=== PATIENT | male | born 1990 | race Two or more races ===

== ENCOUNTER → 2020-05-30 08:25 | Outpatient (BNVA) | payer OTHER, SELFPAY | PROVIDERS: PCP Internal Medicine; Referring Provider Internal Medicine; Visit Provider Internal Medicine Gastroenterology | DX: Z76.89 Persons encountering health services in other specified circumstances (principal) ==

== ENCOUNTER 2020-10-16 09:20 | Outpatient (REF) | payer OTHER, SELFPAY ==
[2020-10-16 10:15] LABS: MANUAL DIFF FLAG NO
[2020-10-16 10:22] LABS: Basophils Percent Auto 0.6 % (0-2); Eosinophils Absolute Auto 0.1 X10*3/uL (0.0-0.4); Eosinophils Percent Auto 2.5 % (0-4); Hematocrit 44.5 % (42-52); Hemoglobin 14.7 g/dl (14.0-18.0); Imm Gran Abs Auto 0.01 X10*3/uL (0.00-0.03); Imm Gran Pct Auto 0.2 % (0.0-0.4); Lymphocytes Absolute Auto 1.8 X10*3/uL (1.2-4.9); Lymphocytes Percent Auto 37.2 % (20-40); Mean Corpuscular Hemoglobin 30.5 pg (27.0-33.0); Mean Corpuscular Volume 92.3 fL (80-98); Mean Platelet Volume 12.3 fL (9.4-12.4); Monocytes Absolute Auto 0.5 X10*3/uL (0.1-1.2); Monocytes Percent Auto 9.4 % (2-11); Neutrophils Absolute Auto 2.4 X10*3/uL (2.0-8.3); Neutrophils Percent Auto 50.1 % (45-73); Platelet Count 133 X10*3/uL (160-400); Red Blood Count 4.82 X10*6/uL (4.60-5.80); Red Cell Distribution Width 13.5 % (11.0-16.0); White Blood Count 4.9 X10*3/uL (4.8-10.8)
[2020-10-16 10:48] LABS: Alanine Aminotransferase 18 U/L (0-40); Albumin Level 4.7 g/dL (3.5-5.0); Alkaline Phosphatase 91 U/L (39-117); Aspartate Amino Transferase 23 U/L (5-37); Bilirubin Direct 0.3 mg/dL (0.0-0.5); Bilirubin Total 0.6 mg/dL (0.0-1.0); C Reactive Protein 0.11 mg/dL (< or = 0.50); Total Protein 6.8 g/dL (6.5-8.0)
[2020-10-16 11:19] LABS: Erythrocyte Sedimentation Rate 2 MM/HR (0-15)
[2020-10-17 13:06] LABS: Transglutaminase Ab IgG 1 U/mL; Transglutaminase IgA 1 U/mL
[2020-10-17 13:52] LABS: Immunoglobulin A 107 mg/dL (47-310)
== END 2020-10-16 09:21 | disposition home or self-care (01) ==
LOC: HO.LAB 09:20
PROVIDERS: PCP Internal Medicine; Visit Provider Internal Medicine Gastroenterology
DX: D69.6 Thrombocytopenia, unspecified (principal); R19.4 Change in bowel habit; R93.2 Abnormal findings on diagnostic imaging of liver and biliary tract
CPT/HCPCS: 36415; 80076; 82784; 83516; 85025; 85652; 86140

== ENCOUNTER → 2020-10-17 10:51 | Outpatient (BNVA) | payer OTHER, SELFPAY | PROVIDERS: Visit Provider Internal Medicine Gastroenterology | DX: R10.30 Lower abdominal pain, unspecified (principal); R93.2 Abnormal findings on diagnostic imaging of liver and biliary tract; K21.9 Gastro-esophageal reflux disease without esophagitis | CPT/HCPCS: 99212 ==

== ENCOUNTER 2021-01-08 07:48 | Outpatient (REF) | payer OTHER, SELFPAY ==
--- NOTE | ~2021-01-08 | US_ITS ---
EXAMINATION: US ABDOMEN COMPLETE CLINICAL INFORMATION: Abnormal findings on diagnostic imaging of liver. COMPARISON: Ultrasound abdomen complete dated 01/30/2019. TECHNIQUE: Real-time imaging of the abdominal viscera. FINDINGS: PANCREAS: Normal. ABDOMINAL AORTA: The proximal, mid, and distal segments are normal in caliber. INFERIOR VENA CAVA: Visualized portions are normal. LIVER: Normal. The liver is normal in size. The liver contour is normal. Parenchymal echogenicity is normal. No focal hepatic lesion. There is no intrahepatic biliary duct dilatation seen. GALLBLADDER: Normal. The gallbladder is physiologically distended without evidence of stones, sludge, polyps, wall thickening or pericholecystic fluid. COMMON BILE DUCT: Normal in caliber measuring 0.1 cm in diameter. RIGHT KIDNEY: Normal. No hydronephrosis. No renal calculi or focal parenchymal lesions. The kidney measures 10.0 cm in maximum dimension. LEFT KIDNEY: Normal. No hydronephrosis. No renal calculi or focal parenchymal lesions. The kidney measures 10.6 cm in maximum dimension. SPLEEN: Normal. The spleen measures 9.4 cm in maximum dimension. FREE FLUID: None. US/US abdomen complete IMPRESSION: Unremarkable exam.
== END 2021-01-08 07:49 | disposition home or self-care (01) ==
LOC: HO.US 07:48
PROVIDERS: PCP Internal Medicine; Visit Provider Internal Medicine Gastroenterology
DX: R93.2 Abnormal findings on diagnostic imaging of liver and biliary tract (principal)
CPT/HCPCS: 76700

== ENCOUNTER 2022-05-20 11:24 | Outpatient (REF) | payer OTHER, SELFPAY ==
[2022-05-20 11:58] LABS: MANUAL DIFF FLAG NO
[2022-05-20 12:36] LABS: Basophils Percent Auto 0.6 % (0-2); Eosinophils Absolute Auto 0.1 X10*3/uL (0.0-0.4); Eosinophils Percent Auto 1.8 % (0-4); Hematocrit 44.6 % (42.0-52.0); Hemoglobin 14.9 g/dl (14.0-18.0); Imm Gran Abs Auto 0.01 X10*3/uL (0.00-0.03); Imm Gran Pct Auto 0.2 % (0.0-0.4); Lymphocytes Absolute Auto 2.2 X10*3/uL (1.2-4.9); Lymphocytes Percent Auto 43.1 % (20-40); Mean Corpuscular HGB Conc 33.4 g/dl (31.0-36.0); Mean Corpuscular Hemoglobin 30.8 pg (27.0-33.0); Mean Corpuscular Volume 92.3 fL (80.0-98.0); Mean Platelet Volume 12.5 fL (9.4-12.4); Monocytes Absolute Auto 0.5 X10*3/uL (0.1-1.2); Monocytes Percent Auto 9.2 % (2-11); Neutrophils Absolute Auto 2.3 x10*3/uL (2.0-8.3); Neutrophils Percent Auto 45.1 % (45-73); Platelet Count 151 X10*3/uL (160-400); Red Blood Count 4.83 X10*6/uL (4.60-5.80); Red Cell Distribution Width 13.1 % (11.0-16.0)
[2022-05-20 13:30] LABS: Alanine Aminotransferase 15 U/L (0-40); Albumin Level 4.8 g/dL (3.5-5.0); Alkaline Phosphatase 95 U/L (39-117); Anion Gap 13 (12-20); Aspartate Amino Transferase 22 U/L (5-37); Bilirubin Total 0.7 mg/dL (0.0-1.0); Blood Urea Nitrogen 18 mg/dL (9-16); Calcium 10.3 mg/dL (8.4-10.2); Carbon Dioxide 30 mmol/L (22-29); Chloride 100 mmol/L (96-108); Cholesterol 161 mg/dL; Estimated Glomerular Filt Rate > 60; Free T4 (Free Thyroxine) 0.94 ng/dL (0.71-1.85); Glucose Random 85 mg/dL (60-115); HDL Cholesterol 50 mg/dL; LDL Cholesterol Calculated 100 mg/dl; Potassium 4.6 mmol/L (3.3-5.1); Sodium 138 mmol/L (135-145); Thyroid Stimulating Hormone 0.69 uIU/mL (0.32-4.0); Total Protein 7.1 g/dL (6.5-8.0); Triglycerides 57 mg/dL
[2022-05-20 13:54] LABS: Folate 14.2 ng/mL (> or = 4.0); Vitamin B12 321 pg/mL (200-900)
== END 2022-05-20 11:25 | disposition home or self-care (01) ==
LOC: HO.LAB 11:24
PROVIDERS: PCP Internal Medicine; Visit Provider Internal Medicine
DX: D72.819 Decreased white blood cell count, unspecified (principal); E78.00 Pure hypercholesterolemia, unspecified
CPT/HCPCS: 36415; 80053; 80061; 82607; 82746; 84439; 84443; 85025

== ENCOUNTER 2023-07-22 14:45 | Outpatient (AMB) | payer OTHER, SELFPAY ==
--- NOTE | 2023-07-22 14:48 | A.OFFPC_ITS ---
Vital Signs 07/22/23 14:50 Height 5 ft 9 in Weight 161 lb 6 oz BMI 23.8 BP 110/62 Blood Pressure Location Lt brachial Position Sitting Pulse 72 Pulse Source Pulse Oximeter Pulse Oximetry (%) 99 Oxygen Delivery Method Room Air Intake Visit Reasons: abdominal pain. Intake Note: Patient is here today for abdominal tinging radiates down testicular area with some pressure no urgency to urinate on going from 07/19/23. Complaint of right side pain. Production Manager Required: No Online Community Manager: Not Required per policy Accompanied by: Self / Same As Patient Allergies No Known Allergies Allergy (Verified 07/23/23 10:16) Medication List - Last Reconciled 07/23/23 by Maulik Rossi MD sulfamethoxazole-trimethoprim 800-160 mg (Bactrim DS) 1 tab PO BID 7 days Tobacco use date assessed: 07/22/23 Dental Screening Dental Screen Date: 07/22/23 Did you have a dental visit in the last 12 months?: Yes Did you have a dental problem in the last 6 months where you did not have access to dental care?: No Was dental information given to patient?: Patient has dentist HPI abdominal pain. HPI Details 32 yr old male presents to the office fo r a sick visit. He is complaining of non specific discomfirt on the right side of the abdomen. He has had these symptoms in the past, US, GI work up and seeing the GI did not reveal anything. Intermittent discomfirt, no specific aggravating or relieving factors. No nausea or vomiting. In addition, patient reports some burning on urination for the past few days. Tingling sensation around the testicle. No discharge. Heterosexual with single partner. [facility] Medical History Lower abdominal pain Leukopenia Thrombocytopenia Abnormal ultrasound of liver Surgical History H/O left wrist surgery Family History Father Hx of type 1 diabetes mellitus Mother Hx of heart failure Brain aneurysm Paternal Grandfather Colon cancer Maternal Aunt Brain aneurysm Stomach cancer Social History Housing: Apartment Alcohol intake: current Alcohol intake frequency: holidays/special occasions only Patient Tobacco Use Status: Never used Tobacco e-Cigarette/Vaping Use: Never Used Second Hand Smoke Exposure: No Substance Use Type: Marijuana service: No Current occupational status: employed Cognitive needs: No Hearing needs: No Vision needs: Yes Questionnaire PHQ-9 Over the last 2 weeks, how often have you been bothered by any of the following problems? 1. Little interest or pleasure in doing things: not at all 2. Feeling down, depressed, or hopeless: not at all 3. Trouble falling or staying asleep, or sleeping too much: not at all 4. Feeling tired or having little energy: not at all 5. Poor appetite or overeating: not at all 6. Feeling bad about yourself - or that you are a failure or have let yourself or your family down: not at all 7. Trouble concentrating on things, such as reading the newspaper or watching television: not at all 8. Moving or speaking so slowly that other people could have noticed. Or the opposite - being so fidgety or restless that you have been moving around a lot more than usual: not at all 9. Thoughts that you would be better off or of hurting yourself in some way: not at all Total score: 0 Depression Screening Interpretation: Negative Depression Screening Done: Yes Source: Developed by Drs. Inderjit Bailey, Urszula Portillo, J Carlos Chiu and colleagues, with an educational ursula from [employer]. Thrive Questionnaire Date Thrive assessed: 07/22/23 I am a: Patient What is your living situation today?: I have a steady place to live Within the past 12 months, did the food you bought not last and you didn't have the money to get more?: Never true Within the past 12 months, did you worry whether your food would run out before you got money to buy more?: Never true Do you have trouble paying for medicines?: No Do you have trouble getting transportation to medical appointments?: No Do you have trouble paying your heating and electricity bill?: No Do you have trouble taking care of your child, family member or friend?: No Do you have trouble with day-to-day activities such as bathing, preparing meals, shopping, managing finances, etc.?: No Are you currently unemployed and looking for a job?: No Are you interested in more education?: No Currently or been in a relationship where the following occur: no concerns reported THRIVE Score: 0 AUDIT C Alcohol Use Questionnaire (AUDIT-C) 1. How often do you have a drink containing alcohol?: 2-4 times a month 2. How many drinks containing alcohol do you have on a typical day when you are drinking?: 1 or 2 Total Score: 2 SHIVA-7 AMB Questionnaire SHIVA-7 Date SHIVA - 7 assessed: 07/22/23 Feeling nervous, anxious, or on edge: 0 = Not at all Not being able to stop or control worryin = Not at all Worrying too much about different things: 0 = Not at all Trouble relaxin = Not at all Being so restless that it is hard to sit still: 0 = Not at all Becoming easily annoyed or irritable: 0 = Not at all Feeling afraid as if something awful might happen: 0 = Not at all Total SHIVA-7 score (0-4 normal; 5-9 mild; 10-14 moderate; 15-21 severe): 0 Source: Developed by Drs. Inderjit Bailey, Urszula Portillo, J Carlos Chiu and colleagues, with an educational ursula from [employer]. Physical exam (Primary Care) Vital Signs: Last Vital Signs Pulse 72 07/22/23 14:50 BP 110/62 07/22/23 14:50 Pulse Ox 99 07/22/23 14:50 Oxygen Delivery Method Room Air 07/22/23 14:50 BMI result Body Mass Index 23.8 Tobacco/Smoking Status: Tobacco use Status Tobacco use date assessed 07/22/23 07/22/23 14:55 Patient Tobacco Use Status Never used Tobacco 07/22/23 14:55 e-Cigarette/Vaping Use Never Used 07/22/23 14:55 PHQ-9: PHQ-9 Score PHQ-9: Total score 0 07/22/23 15:31 Depression Screening Interpretation: Negative Thrive Assessment: Date of Thrive Assessment Date Thrive assessed 07/22/23 07/22/23 14:55 Currently or been in a relationship where the following occur: no concerns reported Const General: cooperative and healthy appearing Nutritional Appearance: well nourished Orientation/consciousness: patient oriented x3 Limitations: no limitations HENMT Head: Yes normal to inspection Eyes General: appearance normal, both eyes and all related structures Neck Neck: Yes normal visual inspection Chest Chest palpation & inspection: normal palpation of entire chest wall Resp Effort & Inspection: normal respiratory effort Neuro General: patient oriented x3 Results AMB Urinalysis, Automated UA Leukoctes 1 Nina/uL Last Edit by Diogo Torres Fela on 07/22/23 15:32 UA Nitrite Negative Last Edit by Diogo Torres [facility] on 07/22/23 15:32 UA Urobilinogen 0 mg/dL Last Edit by Diogo Torres [facility] on 07/22/23 15:32 UA Protein 1 mg/dL Last Edit by Diogo Torres [facility] on 07/22/23 15:32 UA pH 6.0 Last Edit by Diogo Torres [facility] on 07/22/23 15:32 UA Blood 0 Yordy/uL Last Edit by Diogo Torres [facility] on 07/22/23 15:32 UA Specific [place] 1.030 Last Edit by Diogo Torres [facility] on 07/22/23 15: 32 UA Ketone Positive Last Edit by Diogo Torres [facility] on 07/22/23 15:32 UA Bilirubin 0 mg/dL Last Edit by Diogo Torres [facility] on 07/22/23 15:32 UA Glucose 1 mg/dL Last Edit by Diogo Torres [facility] on 07/22/23 15:32 Results Reviewed Results Reviewed: Laboratory Last Values Urine pH (Auto) 6.0 07/22/23 15:27 Specific [place] (Auto) 1.030 07/22/23 15:27 Urine Protein (Auto) 1 mg/dL L* 07/22/23 15:27 Glucose (UA)(Auto) 1 mg/dL 07/22/23 15: Urine Ketones (Auto) Positive 07/22/23 15:27 Urine Blood (Auto) 0 Yordy/uL 07/22/23 15:27 Urine Nitrite (Auto) Negative 07/22/23 15: Urine Bilirubin (Auto) 0 mg/dL 07/22/23 15:27 Urine Urobilinogen (Auto) 0 mg/dL 07/22/23 15:27 Leukocyte Esterase (Auto) 1 Nina/uL 07/22/23 15:27 Assessment and Plan Assessment & Plan (1) Abdominal pain: Code(s): R10.9 - Unspecified abdominal pain Plan: Urinalysis positive for glucose and leucocytes. Empiric treatment with antibiotics. BW has been ordered. Will call with results. Orders: Orders Hemoglobin A1c 07/22/23 R10.9 - Unspecified abdominal pain Liver Panel 07/22/23 R10.9 - Unspecified abdominal pain AMB Urinalysis Automated 07/22/23 Z13.9 - Encounter for screening, unspecified Basic Metabolic Panel 07/22/23 R10.9 - Unspecified abdominal pain Complete Blood Count no Diff 07/22/23 R10.9 - Unspecified abdominal pain UA and rflx microscopic 07/22/23 R10.9 - Unspecified abdominal pain Medications: New sulfamethoxazole-trimethoprim 800-160 mg (Bactrim DS) 1 tab PO BID 7 days 14 tabs 0RF Coding Level of Care Code Est Pt Level 4 (57536) Diagnoses Abdominal pain R10.9
[2023-07-22 14:50] VITALS: BP 110/62; PULSE 72; O2SAT 99; BMI 23.8
== END 2023-07-22 15:43 | disposition home or self-care (01) ==
PROVIDERS: PCP Internal Medicine; Visit Provider Internal Medicine
DX: R10.9 Unspecified abdominal pain (principal); R30.9 Painful micturition, unspecified
CPT/HCPCS: 81003; 99214

== ENCOUNTER 2023-07-22 15:58 | Outpatient (REF) | payer OTHER, SELFPAY ==
[2023-07-22 16:34] LABS: Hematocrit 44.8 % (42.0-52.0); Mean Corpuscular HGB Conc 33.5 g/dl (31.0-36.0); Mean Corpuscular Hemoglobin 29.9 pg (27.0-33.0); Mean Corpuscular Volume 89.4 fL (80.0-98.0); Mean Platelet Volume 11.4 fL (9.4-12.4); Platelet Count 151 X10*3/uL (160-400); Red Blood Count 5.01 X10*6/uL (4.60-5.80); Red Cell Distribution Width 13.1 % (11.0-16.0)
[2023-07-22 16:56] LABS: Estimated Average Glucose 105 mg/dL; Hemoglobin A1c % 5.3 % (<6.0)
[2023-07-22 17:03] LABS: Appearance Urine Clear; Color Urine Dark Yellow; Glucose Urine UA Negative (Negative); Leukocyte Esterase Urine Trace (Negative); Nitrite Urine Negative (Negative); PH 5.5 (5.0-9.0); Specific Gravity - Urine >= 1.030 (1.005-1.025); UMIC TRIGGER UA YES; Urine Blood Negative (Negative); Urine Ketones Trace mg/dL (Negative); Urine Protein Negative (Neg-Trace)
[2023-07-22 17:07] LABS: Alanine Aminotransferase 11 U/L (0-40); Albumin Level 4.7 g/dL (3.5-5.0); Alkaline Phosphatase 91 U/L (39-117); Anion Gap 11 (12-20); Aspartate Amino Transferase 17 U/L (5-37); Bilirubin Direct 0.2 mg/dL (0.0-0.5); Bilirubin Total 0.5 mg/dL (0.0-1.0); Blood Urea Nitrogen 17 mg/dL (9-16); Calcium 9.9 mg/dL (8.4-10.2); Carbon Dioxide 31 mmol/L (22-29); Chloride 103 mmol/L (96-108); Estimated Glomerular Filt Rate > 60; Glucose Random 102 mg/dL (60-115); Potassium 3.9 mmol/L (3.3-5.1); Sodium 141 mmol/L (135-145); Total Protein 7.2 g/dL (6.5-8.0)
[2023-07-22 17:11] LABS: Bacteria Urine None Seen (None Seen); Hyaline Casts Urine 0-2 /LPF (0-2); RBC Urine 0-2 /HPF (0-2); Squamous Epithelial Cell Urine 0-2 /HPF (0-2); WBC Urine 0-5 /HPF (0-5)
== END 2023-07-22 15:59 | disposition home or self-care (01) ==
LOC: HO.LAB 15:58
PROVIDERS: PCP Internal Medicine; Visit Provider Internal Medicine
DX: R10.9 Unspecified abdominal pain (principal)
CPT/HCPCS: 36415; 80048; 80076; 81001; 81003; 83036; 85027

== ENCOUNTER 2023-08-17 12:47 | Emergency (ER) | payer OTHER, SELFPAY ==
--- NOTE | ~2023-08-17 | CT_ITS ---
EXAMINATION: CT ABDOMEN AND PELVIS WITHOUT CONTRAST CLINICAL INFORMATION: Suprapubic pain. Dysuria. COMPARISON: Previous abdominal ultrasound most recent December 2020 TECHNIQUE: Multidetector volumetric imaging was performed from the superior aspect of the liver through the pubic symphysis. Sagittal and coronal reformatted images were obtained on the technologist's workstation. This CT examination was performed using dose optimization techniques as appropriate, variously including the following: *Automated exposure control *Adjustment of mA and/or kV according to patient size (this includes techniques or standardized protocols for targeted exams where dose is matched to indication/reason for exam; i.e. extremities or head) *Use of iterative reconstruction technique DLP: 345 mGy-cm FINDINGS: LUNG BASES: The visualized lung bases are unremarkable. LIVER, GALLBLADDER, AND BILIARY TREE: The liver is normal in size, shape, and attenuation. No focal hepatic lesion or biliary ductal dilatation is present. The gallbladder is unremarkable with no evidence of radiopaque gallstones, gallbladder wall thickening, or obvious pericholecystic inflammatory changes. PANCREAS: Unremarkable. SPLEEN: Unremarkable. ADRENAL GLANDS: Unremarkable. KIDNEYS AND URETERS: The kidneys are normal in size, shape, and attenuation. No hydronephrosis, hydroureter, or calculi seen. No perinephric stranding. BLADDER: Unremarkable. GASTROINTESTINAL TRACT: The small and large bowel are unremarkable. The appendix is unremarkable. ABDOMINAL WALL: No significant hernia is appreciated. LYMPH NODES: Normal. VASCULAR: Unremarkable. PELVIC VISCERA: Unremarkable. OSSEOUS STRUCTURES: Unremarkable. CT/CT abdomen pelvis wo IV con IMPRESSION: Unremarkable exam. Fleischner guidelines were followed.
[2023-08-17 12:50] VITALS: BP 143/78; PULSE 65; RESP 18; TEMP 37; O2SAT 97; BMI 22.4
--- NOTE | 2023-08-17 12:56 | ED_ITS ---
HPI - General Adult General Chief complaint: Urogenital-Male Stated complaint: Pain/tingling in groin area Time Seen by Provider: 08/17/23 14:35 Source: patient and RN notes reviewed Mode of arrival: ambulatory Limitations: no limitations History of Present Illness HPI narrative: This is a 32-year-old male, with no known medical problems, presenting to the emergency department for evaluation of slight dysuria, and suprapubic pain x 3 days. Patient states that over the last several days he has had suprapubic pain, as well as some mild dysuria with urination. He states that he was seen at his primary care physician's office 3 weeks ago with similar symptoms and was treated with a course of Bactrim which he completed and his symptoms resolved up until several days ago. He also endorses some tingling sensation into his testicles, denies any pain, no testicular swelling, pain, overlying rashes, masses, or lesions. He is sexually active with 1 partner. No concerns for any sexually transmitted infections. Denies any fevers, chills, chest pain, shortness of breath, abdominal pain, nausea, vomiting or diarrhea. He denies nocturia. He does report sometimes he has to strain to produce a strong urine stream. No other complaints or concerns at this time. complaint: Dysuria, suprapubic pain Onset (ago): day(s) Quality: burning Relieving factors: none Exacerbating factors: none Associated symptoms: denies other symptoms Treatments prior to arrival: none Related Data Previous Rx's Medication Instructions Recorded sulfamethoxazole 800 1 tab PO BID 7 days #14 tabs 07/22/23 mg-trimethoprim 160 mg tablet (Bactrim DS) doxycycline hyclate 100 mg tablet 100 mg PO BID 7 days #14 tabs 08/17/23 Allergies Allergy/AdvReac Type Severity Reaction Status Date / Time No Known Allergies Allergy Verified 08/17/23 12:58 Review of Systems Review of Systems: Yes all other systems are reviewed and are negative Constitutional: Constitutional: Reports as per [facility] Past Medical History Medical History Lower abdominal pain Leukopenia Thrombocytopenia Abnormal ultrasound of liver Surgical History H/O left wrist surgery Family History Family History Father Hx of type 1 diabetes mellitus Mother Hx of heart failure Brain aneurysm Paternal Grandfather Colon cancer Maternal Aunt Brain aneurysm Stomach cancer Social History Social History Housing: Apartment Alcohol intake: current Alcohol intake frequency: holidays/special occasions only Patient Tobacco Use Status: Never used Tobacco e-Cigarette/Vaping Use: Never Used Second Hand Smoke Exposure: No Substance Use Type: Marijuana Advance Directives: No service: No Current occupational status: employed Cognitive needs: No Hearing needs: No Vision needs: Yes Physical Exam ED Vital Signs: Vital Signs - 24 hr 08/17/23 12:50 08/17/23 14:53 Temperature 98.6 F Pulse Rate 65 53 Respiratory Rate 18 16 Blood Pressure 143/78 H 122/76 Pulse Oximetry 97 99 Oxygen Delivery Method Room Air Room Air BMI result Body Mass Index 22.4 Const General: cooperative, comfortable and no acute distress Orientation/consciousness: patient oriented x3 Limitations: no limitations HENMT Head: Yes normal to inspection, Yes normocephalic and Yes atraumatic Ears: hearing grossly normal bilaterally General nose exam: Normal external nose present Face and sinus: Yes normal facial exam Mouth: Normal oral and palatal mucosa present, oropharynx normal and moist mucous membranes Throat: Yes posterior oropharynx normal Eyes General: appearance normal, both eyes and all related structures Eyelids: Yes eyelids normal Conjunctivae: conjunctivae normal Sclerae: sclerae normal Pupils: Equal, round and reactive pupils present EOM: EOMs intact bilaterally Neck Neck: Yes normal visual inspection, Yes full ROM and Yes no lymphadenopathy Lymphatic: no lymphadenopathy noted Chest Chest palpation & inspection: normal inspection of the chest Resp Effort & Inspection: normal respiratory effort and able to speak in complete sentences Auscultation: clear to auscultation bilaterally, no crackles, no rales, no rhonchi and no wheezes Cardio Rate: regular rate Rhythm: regular rhythm Heart sounds: S1 normal heart sound present and S2 normal heart sound present GI Other: Mild suprapubic tenderness, no rebound or guarding. Inspection: Yes normal to inspection Skin General skin exam: no rashes or lesions noted Trauma: no lacerations or abrasions Wounds: no wounds Neuro General: patient oriented x3 and moves all extremities Cranial nerves: Yes Equal, round and reactive pupils present Extrem General: Yes normal to inspection Right upper extremity: normal to inspection Left upper extremity: normal to inspection Right lower extremity: normal to inspection Left lower extremity: normal to inspection Course Course Course Narrative: This is a rapid medical exam: Additional HPI, ROS, PE not included below will be deferred to primary provider. Patient is a 32-year-old male presenting to the ED with a few days of suprapubic abdominal pain as well as low back pain. States he is only sexually active with his fiance and sometimes uses condoms. Reports some cloudy penile discharge and when he had similar symptoms in the past, he had an STI. Plan: UA, CT NG Reevaluation(s) Reevaluation #1: Urine returns, revealing trace leuk esterases, will obtain CT abdomen to rule out kidney stone. Reevaluation #2: CT unremarkable. Discussed case with my attending physician, Dr. France, who recommends treating for urethritis. Given he tested negative for gonorrhea chlamydia, this may be another infection source and will treat with 7 day course of doxycycline. Also given referral to Urology. Discussed this with patient, who understands and agrees with this treatment plan. Given return precautions. Patient stable for discharge Medications Administered Discontinued Medications Generic Name Dose Route Start Last Admin Trade Name Freq PRN Reason Stop Dose Admin Ibuprofen 600 mg 08/17/23 17:10 08/17/23 17:57 Ibuprofen 600 Mg Tablet PO 08/17/23 17:11 600 mg ONCE ONE Administration Medical Decision Making Medical Decision Making [facility] Narrative: This is a 32-year-old male, with no known medical problems, presenting to the emergency department complaints of suprapubic pain and dysuria x3 days. On arrival, vital signs within normal limits. He had similar symptoms several weeks ago and was told he had a urinary tract infection. He was treated with a course of antibiotics which he completed however his symptoms returned 3 days ago. On examination, mild suprapubic tenderness. Given some tingling into his testes, will obtain CTA to rule out any obstructive uropathy like symptoms. Urinalysis will also be obtained as well as GC chlamydia. Differential Diagnosis Differential Diagnoses: The differential diagnosis associated with the presentation includes Urethritis, cystitis, nephrolithiasis, obstructive uropathy Lab Data MDM Lab Attestation statement: I reviewed the patient's lab results. Trace leuk esterases, negative gonorrhea and chlamydia Labs: Lab Results 08/17/23 08/17/23 Range/Units 13:32 15:46 Urine Color Yellow Urine Appearance Clear Urine pH 7.5 (5.0-9.0) Ur Specific [place] 1.020 (1.005-1.025) Urine Protein Negative (Neg-Trace) mg/dL Urine Glucose (UA) Negative (Negative) mg/dL Urine Ketones Negative (Negative) mg/dL Urine Blood Negative (Negative) Urine Nitrite Negative (Negative) Ur Leukocyte Esterase Trace H (Negative) Urine RBC 0-2 (0-2) /HPF Urine WBC 0-5 (0-5) /HPF Ur Squamous Epith Cells 0-2 (0-2) /HPF Urine Bacteria None Seen (None Seen) Hyaline Casts 0-2 (0-2) /LPF Chlam trachomat DNA PCR NOT DETECTED (Not Detect.) N.gonorrhoeae DNA (PCR) NOT DETECTED (Not Detect.) Radiology Impression Discussion of test interpretation with radiology: I have reviewed the radiologist's reading. Radiologist Impression: EXAMINATION: CT ABDOMEN AND PELVIS WITHOUT CONTRAST CLINICAL INFORMATION: Suprapubic pain. Dysuria. COMPARISON: Previous abdominal ultrasound most recent December 2020 TECHNIQUE: Multidetector volumetric imaging was performed from the superior aspect of the liver through the pubic symphysis. Sagittal and coronal reformatted images were obtained on the technologist's workstation. This CT examination was performed using dose optimization techniques as appropriate, variously including the following: *Automated exposure control *Adjustment of mA and/or kV according to patient size (this includes techniques or standardized protocols for targeted exams where dose is matched to indication/reason for exam; i.e. extremities or head) *Use of iterative reconstruction technique DLP: 345 mGy-cm FINDINGS: LUNG BASES: The visualized lung bases are unremarkable. LIVER, GALLBLADDER, AND BILIARY TREE: The liver is normal in size, shape, and attenuation. No focal hepatic lesion or biliary ductal dilatation is present. The gallbladder is unremarkable with no evidence of radiopaque gallstones, gallbladder wall thickening, or obvious pericholecystic inflammatory changes. PANCREAS: Unremarkable. SPLEEN: Unremarkable. ADRENAL GLANDS: Unremarkable. KIDNEYS AND URETERS: The kidneys are normal in size, shape, and attenuation. No hydronephrosis, hydroureter, or calculi seen. No perinephric stranding. BLADDER: Unremarkable. GASTROINTESTINAL TRACT: The small and large bowel are unremarkable. The appendix is unremarkable. ABDOMINAL WALL: No significant hernia is appreciated. LYMPH NODES: Normal. VASCULAR: Unremarkable. PELVIC VISCERA: Unremarkable. OSSEOUS STRUCTURES: Unremarkable. CT/CT abdomen pelvis wo IV con IMPRESSION: Unremarkable exam. Fleischner guidelines were followed. Discharge Plan Discharge Clinical Impression: Urethritis Patient Disposition: Home, Self-Care Instructions: Urinary Tract Infection in Men (ED) Additional Instructions: Your seen in the emergency room due to abdominal pain, bladder pain. You likely have something called urethritis. This is inflammation of your ureter which is the tube that your urine comes out of. This requires antibiotics. Please finish the entire course even if your feeling better. I am also giving you a referral to Urology, call tomorrow to make an appointment. Drink plenty of fluids get plenty of rest. If any new or worsening symptoms occur including but not limited to fevers, chills, chest pain, shortness of breath, vomiting, worsening pain, please return for re-evaluation. Prescriptions: New doxycycline hyclate 100 mg tablet 100 mg PO BID 7 Days Qty: 14 0RF No Action sulfamethoxazole-trimethoprim [Bactrim DS] 800-160 mg tablet 1 tab PO BID 7 Days Qty: 14 0RF Referrals: [facility] [Provider Group] Interventions: ED Discharge Assessment Last Done: 08/17/23 18:35 Discharge Date/Time: 08/17/23 18:36
[2023-08-17 14:53] VITALS: BP 122/76; PULSE 53; RESP 16; O2SAT 99
[2023-08-17 15:21] LABS: CT PCR NOT DETECTED (Not Detect.); NG PCR NOT DETECTED (Not Detect.)
--- NOTE | 2023-08-17 15:42 | PC.NURSE ---
PT RESTING IN BED IN [facility] IN NO ACUTE DISTRESS, PT AWARE OF NEED OF [facility]. AWAITING SPECIMEN
[2023-08-17 15:54] LABS: Appearance Urine Clear; Color Urine Yellow; Glucose Urine UA Negative (Negative); Leukocyte Esterase Urine Trace (Negative); Nitrite Urine Negative (Negative); PH 7.5 (5.0-9.0); UMIC TRIGGER UACC YES; Urine Blood Negative (Negative); Urine Ketones Negative (Negative); Urine Protein Negative (Neg-Trace)
[2023-08-17 15:56] LABS: Bacteria Urine None Seen (None Seen); Hyaline Casts Urine 0-2 /LPF (0-2); RBC Urine 0-2 /HPF (0-2); Squamous Epithelial Cell Urine 0-2 /HPF (0-2); WBC Urine 0-5 /HPF (0-5)
--- NOTE | 2023-08-17 17:07 | PC.NURSE ---
PT AMBULATORY TO CT SCAN
[2023-08-17] MEDS: Ibuprofen 600 MG TABLET PO (17:57)
== END 2023-08-17 18:36 | disposition home or self-care (01) ==
PROVIDERS: Registered Nurse Emergency; Emergency Provider Emergency Medicine; PCP Internal Medicine
DX: N34.2 Other urethritis (principal); R10.30 Lower abdominal pain, unspecified; R30.0 Dysuria
CPT/HCPCS: 0353U; 74176; 81001; 99283; 99284

== ENCOUNTER 2023-09-30 15:15 | Outpatient (AMB) | payer OTHER, SELFPAY ==
--- NOTE | 2023-09-30 15:26 | A.OFFVIS_ITS ---
Intake Intake Visit Reasons: 4w/urethritis Intake Note: NEW Patient presents today to established treatment for: Urethritis Meds- None Allergies to Antibiotic- No Known Allergies Blood Thinner- None Manager Deli Required: No Accompanied by: Self / Same As Patient Allergies No Known Allergies Allergy (Verified 09/30/23 17:29) Medication List - Last Reconciled 09/30/23 by EVIE Schwarz No Known Home Meds HPI HPI Comments History of Present Illness Details Dilip is a very pleasant 32-year-old male patient of Dr. White. He has a past medical history of leukopenia and thrombocytopenia. He presents to the office today as a new patient for lower urinary tract symptoms he had been experiencing. He reports approximately 2 months ago going to [facility] same day walk-in clinic for dysuria and bilateral testicular paresthesia he had been experiencing upon urination. He reports having been prescribed antibiotic therapy and completed this as prescribed. He reports having had no further episodes of these asformentioned symptoms. He denies any recent trauma. He is sexually active with 1 single partner. He reports symptoms had subsided approximately 1 week after his visit to the walk-in clinic. In review of patient's chart it appears urinalysis at walk-in clinic noted glucosuria as well as positive leukocytes at which time he was treated with Bactrim. In office urinalysis results reviewed with the patient today. He denies urinary urgency, urinary frequency, incontinence, nocturia, hematuria, dysuria, foul smelling urine, changes to urinary stream, flank pain, fever, and or chills. He is happy with his current voiding parameters. [facility] Medical History Lower abdominal pain Leukopenia Thrombocytopenia Abnormal ultrasound of liver Surgical History H/O left wrist surgery Family History Father Hx of type 1 diabetes mellitus Mother Hx of heart failure Brain aneurysm Paternal Grandfather Colon cancer Maternal Aunt Brain aneurysm Stomach cancer Social History Housing: Apartment Alcohol intake: current Alcohol intake frequency: holidays/special occasions only Patient Tobacco Use Status: Never used Tobacco e-Cigarette/Vaping Use: Never Used Second Hand Smoke Exposure: No Substance Use Type: Marijuana service: No Current occupational status: employed Cognitive needs: No Hearing needs: No Vision needs: Yes Review of Systems Const All systems reviewed & are unremarkable except as noted in HPI and below Physical Exam Const General: cooperative, healthy appearing, comfortable, no acute distress, well developed, alert and awake Orientation/consciousness: patient oriented x3 Limitations: no limitations HEENT Head: Yes normal to inspection, Yes normocephalic and Yes atraumatic Ears: hearing grossly normal bilaterally Eyes General: appearance normal, both eyes and all related structures Neck Neck: Yes normal visual inspection and Yes trachea midline Chest Chest palpation & inspection: normal inspection of the chest Resp Effort & Inspection: normal respiratory effort and able to speak in complete sentences Cardio Rate: regular rate GI Inspection: Yes normal to inspection General: Yes no CVA tenderness Back/Spine/Pelvis Back: no CVA tenderness Skin General skin exam: no rashes or lesions noted Neuro General: patient oriented x3 Extrem General: Yes normal to inspection Psych Appearance: grossly normal and well kempt Mental Status: mental status grossly normal Speech and movement: Normal speech and movement present and Clear speech present Affect: normal affect Attitude: cooperative Thought process: Normal thought process present Thought content: Normal thought content present Insight: Fair insight present (Psych) Judgement: Fair judgement present (Psych) Results AMB Urinalysis, Automated UA Leukoctes 0 Nina/uL Last Edit by Sonal Cantu CMA on 09/30/23 15 :38 UA Nitrite Negative Last Edit by Sonal Cantu CMA on 09/30/23 15: 38 UA Urobilinogen 0.2 mg/dL Last Edit by Sonal Cantu CMA on 4 15:38 UA Protein 15 mg/dL Last Edit by Sonal Cantu CMA on 09/30/23 15:3 8 UA pH 6.0 Last Edit [facility], [facility] on 09/30/23 15:38 UA Blood 0 Yordy/uL Last Edit by [facility], [facility] on 09/30/23 15:38 UA Specific [place] 1.030 Last Edit by [facility], [facility] on 15:38 UA Ketone Negative Last Edit by [facility], [facility] on 09/30/23 15:3 8 UA Bilirubin 0 mg/dL Last Edit by [facility], [facility] on 09/30/23 15: 38 UA Glucose 0 mg/dL Last Edit by [facility], [facility] on 09/30/23 15:38 Results Reviewed Results Reviewed: Laboratory Last Values Urine pH (Auto) 6.0 09/30/23 15:30 Specific [place] (Auto) 1.030 09/30/23 15:30 Urine Protein (Auto) 15 mg/dL 09/30/23 15:30 Glucose (UA)(Auto) 0 mg/dL 09/30/23 15:30 Urine Ketones (Auto) Negative 09/30/23 15:30 Urine Blood (Auto) 0 Yordy/uL 09/30/23 15:30 Urine Nitrite (Auto) Negative 09/30/23 15:30 Urine Bilirubin (Auto) 0 mg/dL 09/30/23 15:30 Urine Urobilinogen (Auto) 0.2 mg/dL 09/30/23 15:30 Leukocyte Esterase (Auto) 0 Nina/uL 09/30/23 15:30 Assessment & Plan Assessment & Plan (1) Urethritis: Code(s): N34.2 - Other urethritis (2) Lower urinary tract symptoms: Code(s): R39.9 - Unspecified symptoms and signs involving the genitourinary system (3) UTI symptoms: Code(s): R39.9 - Unspecified symptoms and signs involving the genitourinary system Plan In office urinalysis results reviewed with the patient today; as noted above. Patient currently denies any bothersome urinary issues or concerns. He reports to be happy with current voiding parameters. He reports symptoms he had been experiencing has since subsided. Discussed at length potential causes for lower urinary tract symptoms patient had been experiencing. Discussed, educated, and stressed the importance of drinking plenty of water daily. Follow-up as needed Orders: Orders AMB Urinalysis Automated Today R33.9 - Retention of urine, unspecified Patient Instructions: The patient had an opportunity to ask questions regarding the treatment plan. All questions were answered. Physical exam, labs, and imaging were discussed and reviewed in detail. As well as risks, benefits, and discussion of treatment choices. No major barriers to understanding were identified. The patient expressed understanding and agreement with the above treatment plan. The patient was made aware they should contact our office by phone for worsening of their current condition, the appearance of new symptoms, or with any questions or concerns. Compliance is encouraged with any medications and follow up testing that is ordered. It is a privilege to be allowed the opportunity to participate in? your urological care.? Again, if you have any questions or concerns If you have any questions or concerns please do not hesitate to contact me. The office is [phone]. This note is constructed using voice recognition software. While every effort has been made to ensure accuracy packager or packer and weigher errors may have been included. Yours sincerely, EVIE Schwarz Coding Level of Care Code New Pt Level 3 (73888) Diagnoses Urethritis N34.2 Lower urinary tract symptoms R39.9 UTI symptoms R39.9
== END 2023-09-30 15:57 | disposition home or self-care (01) ==
LOC: HO.HUSH 15:15
PROVIDERS: PCP Internal Medicine; Visit Provider Nurse Practitioner Family
DX: N34.2 Other urethritis (principal); R39.9 Unspecified symptoms and signs involving the genitourinary system; R33.9 Retention of urine, unspecified
CPT/HCPCS: 99203

== ENCOUNTER → 2023-09-30 15:15 | Outpatient (BNVA) | payer OTHER, SELFPAY | PROVIDERS: PCP Internal Medicine; Visit Provider Nurse Practitioner Family | DX: N34.2 Other urethritis (principal); R39.9 Unspecified symptoms and signs involving the genitourinary system; R33.9 Retention of urine, unspecified | CPT/HCPCS: 81003 ==

== ENCOUNTER 2023-10-06 10:25 | Outpatient (AMB) | payer OTHER, SELFPAY ==
[2023-10-06 10:26] VITALS: BP 132/78; PULSE 79; O2SAT 98; BMI 23.6
--- NOTE | 2023-10-06 10:26 | MHC.PC.OV ---
Vital Signs 10/06/23 10:26 Height 5 ft 8 in Weight 155 lb BMI 23.6 BP 132/78 Blood Pressure Location Lt brachial Position Sitting Pulse 79 Pulse Source Pulse Oximeter Pulse Oximetry (%) 98 Oxygen Delivery Method Room Air Intake Visit Reasons: pe Allergies No Known Allergies Allergy (Verified 10/06/23 10:27) Medication List - Last Reconciled 10/06/23 by Osvaldo White MD No Known Home Meds Tobacco use date assessed: 10/06/23 Dental Screening Dental Screen Date: 10/06/23 Did you have a dental visit in the last 12 months?: Yes Did you have a dental problem in the last 6 months where you did not have access to dental care?: No Was dental information given to patient?: Patient has dentist HPI pe HPI Details 32-year-old male with a history of GERD coming in for physical exam last seen in September 2022. Review of the notes in July 2023 ER visit for dysuria was treated in a physician's office with Bactrim patient had a CT scan of the abdomen which was negative and diagnosis of urethritis. Patient was given whole course of antibiotic with doxycycline.. Patient is here for physical exam- states better now, causing chest pain going to the L shoulder and neck and the to the back . no FH of cardiac , does run and doing good, PFSH Medical History Lower abdominal pain Leukopenia Thrombocytopenia Abnormal ultrasound of liver Surgical History H/O left wrist surgery Family History (Updated 10/06/23 @ 11:16 by Osvaldo White MD) Father Hx of type 1 diabetes mellitus Mother Hx of heart failure Brain aneurysm Paternal Grandfather Colon cancer Maternal Aunt Brain aneurysm Stomach cancer Social History (Updated 10/06/23 @ 11:18 by Osvaldo White MD) Housing: Apartment Alcohol intake: current Alcohol intake frequency: holidays/special occasions only Comment: once Q 3 month 4 drinks Patient Tobacco Use Status: Never used Tobacco Years Smoked: stopped 2021, MJ e-Cigarette/Vaping Use: Never Used Second Hand Smoke Exposure: No Substance Use Type: Marijuana service: No Current occupational status: employed Cognitive needs: No Hearing needs: No Vision needs: Yes Questionnaire PHQ-9 Over the last 2 weeks, how often have you been bothered by any of the following problems? 1. Little interest or pleasure in doing things: not at all 2. Feeling down, depressed, or hopeless: not at all 3. Trouble falling or staying asleep, or sleeping too much: not at all 4. Feeling tired or having little energy: not at all 5. Poor appetite or overeating: not at all 6. Feeling bad about yourself - or that you are a failure or have let yourself or your family down: not at all 7. Trouble concentrating on things, such as reading the newspaper or watching television: not at all 8. Moving or speaking so slowly that other people could have noticed. Or the opposite - being so fidgety or restless that you have been moving around a lot more than usual: not at all 9. Thoughts that you would be better off or of hurting yourself in some way: not at all Total score: 0 Depression Screening Interpretation: Negative Depression Screening Done: Yes Source: Developed by Drs. Inderjit Bailey, Urszula Portillo, J Carlos Chiu and colleagues, with an educational ursula from [employer] ([employer]). Thrive Questionnaire Date Thrive assessed: 10/06/23 I am a: Patient What is your living situation today?: I have a steady place to live Within the past 12 months, did the food you bought not last and you didn't have the money to get more?: Never true Within the past 12 months, did you worry whether your food would run out before you got money to buy more?: Never true Do you have trouble paying for medicines?: No Do you have trouble getting transportation to medical appointments?: No Do you have trouble paying your heating and electricity bill?: No Do you have trouble taking care of your child, family member or friend?: No Do you have trouble with day-to-day activities such as bathing, preparing meals, shopping, managing finances, etc.?: No Are you currently unemployed and looking for a job?: No Are you interested in more education?: No Currently or been in a relationship where the following occur: no concerns reported THRIVE Score: 0 AUDIT C Alcohol Use Questionnaire (AUDIT-C) 1. How often do you have a drink containing alcohol?: 2-4 times a month 2. How many drinks containing alcohol do you have on a typical day when you are drinking?: 1 or 2 3. How often do you have six or more drinks on one occasion?: Less than monthly Total Score: 3 SHIVA-7 AMB Questionnaire SHIVA-7 Date SHIVA - 7 assessed: 10/06/23 Feeling nervous, anxious, or on edge: 0 = Not at all Not being able to stop or control worryin = Not at all Worrying too much about different things: 0 = Not at all Trouble relaxin = Not at all Being so restless that it is hard to sit still: 0 = Not at all Becoming easily annoyed or irritable: 0 = Not at all Feeling afraid as if something awful might happen: 0 = Not at all Total SHIVA-7 score (0-4 normal; 5-9 mild; 10-14 moderate; 15-21 severe): 0 Source: Developed by Drs. Inderjit Bailey, Urszula Portillo, J Carlos Chiu and colleagues, with an educational ursula from [employer] ([employer]). Review of Systems Const Denies poor appetite and Denies weakness Eyes Denies no additional complaints ENT Reports Normal hearing present, Denies dizziness, Denies nasal congestion, Denies tinnitus and Denies sore throat Card Denies chest pain, Denies syncope, Denies rapid heart rate and Denies dyspnea Resp Denies cough and Denies dyspnea GI Denies change in stool character, Reports constipation, Denies diarrhea, Denies nausea and Denies vomiting Denies dysuria and Denies urinary frequency Neuro Reports Normal hearing present, Denies confusion, Denies dizziness, Denies syncope and Denies weakness Psych Denies confusion Physical exam (Primary Care) Vital Signs: Last Vital Signs Pulse 79 10/06/23 10:26 BP 132/78 10/06/23 10:26 Pulse Ox 98 10/06/23 10:26 Oxygen Delivery Method Room Air 10/06/23 10:26 BMI result Body Mass Index 23.6 Tobacco/Smoking Status: Tobacco use Status Tobacco use date assessed 10/06/23 10/06/23 10:33 Patient Tobacco Use Status Never used Tobacco 10/06/23 10:33 e-Cigarette/Vaping Use Never Used 10/06/23 10:33 PHQ-9: PHQ-9 Score PHQ-9: Total score 0 10/06/23 10:33 Depression Screening Interpretation: Negative Thrive Assessment: Date of Thrive Assessment Date Thrive assessed 10/06/23 10/06/23 10:33 Currently or been in a relationship where the following occur: no concerns reported Const General: No confusion Orientation/consciousness: No confusion HENMT Head: Yes normocephalic Ears: external ears normal and TM's normal bilaterally Face and sinus: Yes normal facial exam Mouth: moist mucous membranes Throat: Yes tonsils normal Eyes Conjunctivae: conjunctivae normal Pupils: Equal, round and reactive pupils present and Pupil accommodation reflex normal Direct Ophthalmoscopy: normal light reflex Neck Neck: No lymphadenopathy Thyroid: Thyroid normal Chest Chest palpation & inspection: normal inspection of the chest Resp Effort & Inspection: normal respiratory effort and no audible wheezes Auscultation: clear to auscultation bilaterally, no crackles, no wheezes and lung sounds not diminished Cardio Rate: regular rate Rhythm: regular rhythm Peripheral pulses: radial pulses present and dorsalis pedis present GI Palpation (GI): no masses Auscultation: normal bowel sounds and normoactive bowel sounds Rectal Exam - Male: Yes deferred Skin General skin exam: no rashes or lesions noted Rashes: no rashes Neuro General: No confusion Cranial nerves: Yes Equal, round and reactive pupils present and Yes Normal hearing present Cognition (Neuro): normal cognition Gait exam (Neuro): Normal gait present Motor exam (neuro): 5/5 motor strength present throughout Deep tendon reflexes (DTR's): Right brachioradialis reflex intensity grade: 2+, Left brachioradialis reflex intensity grade: 2+, Right patellar reflex intensity grade: 2+ and Left patellar reflex intensity grade: 2+ Extrem General: No edema Assessment and Plan Assessment & Plan (1) Annual physical exam: Code(s): Z00.00 - Encounter for general adult medical examination without abnormal findings (2) Dysuria: Code(s): R30.0 - Dysuria Plan: Patient was seen in the Urgent Center and ER and had 2 courses of antibiotics from Bactrim to doxycycline (3) GERD (gastroesophageal reflux disease): Comment: April 2019 Code(s): K21.9 - Gastro-esophageal reflux disease without esophagitis Qualifiers: Esophagitis presence: without esophagitis Qualified Code(s): K21.9 - Gastro-esophageal reflux disease without esophagitis Plan: Avoid the foods that causes that usually spicy foods, tomato products, juices, coffee, soda and foods that your sensitive to. After eating do not lie down, allow 3-4 hours before in lie down. And keep the head of bed above 30 degrees to avoid the acid from going up. (4) Generalized anxiety disorder: Code(s): F41.1 - Generalized anxiety disorder Medications: New sertraline 25 mg PO DAILY 30 tabs 2RF F41.1 - Generalized anxiety disorder Coding Level of Care Code Est Pt Prev Care 18-39y([id number]) Diagnoses Annual physical exam Z00.00 Dysuria R30.0 Gastroesophageal reflux disease without esophagitis K21.9 Esophagitis presence: without esophagitis Generalized anxiety disorder F41.1
== END 2023-10-06 11:36 | disposition home or self-care (01) ==
PROVIDERS: Visit Provider Internal Medicine
DX: Z00.00 Encounter for general adult medical examination without abnormal findings (principal); R30.0 Dysuria; K21.9 Gastro-esophageal reflux disease without esophagitis; F41.1 Generalized anxiety disorder
CPT/HCPCS: 99395

== ENCOUNTER 2024-02-11 08:47 | Emergency (ER) | payer OTHER, SELFPAY ==
--- NOTE | ~2024-02-11 | US_ITS ---
EXAMINATION: US SCROTUM CLINICAL INFORMATION: Scrotal pain/swelling. COMPARISON: CT abdomen/pelvis 08/17/2023. TECHNIQUE: A sonogram of the scrotum was performed assessing santillan-scale appearance and color Doppler flow. Spectral Doppler analysis of the arterial and venous flow were performed in the testes bilaterally. FINDINGS: RIGHT: Right testicle measures 4 x 2.1 x 2.6 cm, volume 11.6 mL. Simple appearing 0.2 cm testicular cyst, otherwise no parenchymal lesions. Spectral Doppler analysis of the arterial and venous flow is normal in the right testis. Right epididymal head is normal in size. Small hydrocele. No varicocele. Right epididymal Doppler flow is normal. LEFT: Left testicle measures 3.7 x 1.9 x 2.9 cm, volume 10.6 mL. Simple appearing 0.2 cm testicular cyst, otherwise no parenchymal lesions. Spectral Doppler analysis of the arterial and venous flow is normal in the left testis. Left epididymal head is normal in size. Small hydrocele. No varicocele. Left epididymal Doppler flow is normal. US/US scrotum IMPRESSION: 1. Small bilateral hydroceles. 2. Simple-appearing subcentimeter bilateral testicular cysts. Electronically signed by: Leana Rowland MD 02/11/2024 11:15 AM EDT
--- NOTE | ~2024-02-11 | US_ITS ---
EXAMINATION: US SCROTUM CLINICAL INFORMATION: Scrotal pain/swelling. COMPARISON: CT abdomen/pelvis 08/17/2023. TECHNIQUE: A sonogram of the scrotum was performed assessing santillan-scale appearance and color Doppler flow. Spectral Doppler analysis of the arterial and venous flow were performed in the testes bilaterally. FINDINGS: RIGHT: Right testicle measures 4 x 2.1 x 2.6 cm, volume 11.6 mL. Simple appearing 0.2 cm testicular cyst, otherwise no parenchymal lesions. Spectral Doppler analysis of the arterial and venous flow is normal in the right testis. Right epididymal head is normal in size. Small hydrocele. No varicocele. Right epididymal Doppler flow is normal. LEFT: Left testicle measures 3.7 x 1.9 x 2.9 cm, volume 10.6 mL. Simple appearing 0.2 cm testicular cyst, otherwise no parenchymal lesions. Spectral Doppler analysis of the arterial and venous flow is normal in the left testis. Left epididymal head is normal in size. Small hydrocele. No varicocele. Left epididymal Doppler flow is normal. US/US scrotum doppler IMPRESSION: 1. Small bilateral hydroceles. 2. Simple-appearing subcentimeter bilateral testicular cysts. Electronically signed by: Leana Rowland MD 02/11/2024 11:15 AM EDT
[2024-02-11 08:54] VITALS: BP 150/76; PULSE 60; RESP 16; TEMP 36.5; O2SAT 96; BMI 24.3
[2024-02-11 09:13] LABS: Appearance Urine Clear; Color Urine Yellow; Glucose Urine UA Negative (Negative); Leukocyte Esterase Urine Negative (Negative); Nitrite Urine Negative (Negative); PH 6.5 (5.0-9.0); Urine Blood Negative (Negative); Urine Ketones Negative (Negative); Urine Protein Negative (Neg-Trace)
--- NOTE | 2024-02-11 09:16 | ED_ITS ---
HPI - Male Genitourinary General Chief complaint: Urogenital-Male Stated complaint: groin pain Time Seen by Provider: 02/11/24 09:12 Source: patient Mode of arrival: ambulatory Limitations: no limitations History of Present Illness ED Provider: Liudmila Pugh PA-C HPI Narrative: Patient is a 33 year old assigned male at with a history of anxiety and GERD presenting to the emergency department today with scrotal pain and penile discharge. Patient states that over the last week he has had intermittent tingling of his scrotum along the back side and into his groin. Patient states t hat he is sometimes having burning with urination and light discharge from his penis. Patient states that he is sexually active with 1 partner, his fiance. Patient denies any dizziness, lightheadedness, abdominal pain, nausea, vomiting, fever, chills, blurry vision, double vision, loss of vision, chest pain, difficulty breathing, shortness of breath, back pain, night sweats, increased urinary frequency, increased urinary urgency, blood in his urine or stool, syncope or a near syncopal episode, recent trauma or falls, bowel incontinence, bladder incontinence, or any other complaints at this time. MD Complaint: testicle pain, penile discharge and dysuria Onset (ago): week(s) Related Data Previous Rx's ?Medication ?Instructions ?Recorded sertraline 25 mg tablet 25 mg PO DAILY #30 tabs 10/06/23 doxycycline hyclate 100 mg tablet 100 mg PO BID 7 days #14 tabs 02/11/24 Allergies Allergy/AdvReac Type Severity Reaction Status Date / Time No Known Allergies Allergy Verified 02/11/24 08:55 Review of Systems Constitutional: Constitutional: Reports no additional constitutional complaints, Denies chills, Denies fever(s) and Denies night sweats Eyes: Eyes: Reports no additional eye complaints, Denies blurry vision, Denies change in vision, Denies diplopia, Denies eye discharge, Denies loss of vision and Denies eye pain ENT: Denies dizziness Cardiovascular: Cardiovascular: Reports no additional cardiovascular complaints, Denies chest pain, Denies lightheadedness, Denies Loss of Consciousness and Denies dyspnea Respiratory: Respiratory: Reports no additional respiratory complaints and Denies dyspnea Gastrointestinal: Gastrointestinal: Reports no additional gastrointestinal complaints, Denies abdominal pain, Denies melena, Denies hematochezia, Denies change in bowel habits and Denies change in stool character Genitourinary: Genitourinary: Reports no additional male genitourinary complaints, Denies hematuria, Denies oliguria, Denies difficulty urinating, Reports dysuria, Reports penile discharge, Reports testicular pain, Denies urinary frequency, Denies urinary hesitancy, Denies urinary incontinence and Denies urinary urgency Musculoskeletal: Musculoskeletal: Reports no additional musculoskeletal complaints, Denies numbness and Denies tingling Neurologic: Denies dizziness, Denies loss of vision, Denies numbness and Denies tingling Psychiatric: Psychiatric: Reports no additional psychiatric complaints Endocrine: Endocrine: Reports no additional endocrine complaints Hematologic/Lymphatic: Hematologic/Lymphatic: Reports no additional hematologic/lymphatic complaints Allergic/Immunologic: Allergic/Immunologic: Reports no additional allergic/immunologic complaints PMF Past Medical History Attestation statement: The following information was validated with the patient. Source: old records reviewed and nursing notes reviewed Medical History Lower abdominal pain Leukopenia Thrombocytopenia Abnormal ultrasound of liver Surgical History H/O left wrist surgery Family History Family History Father Hx of type 1 diabetes mellitus Mother Hx of heart failure Brain aneurysm Paternal Grandfather Colon cancer Maternal Aunt Brain aneurysm Stomach cancer Social History Social History Housing: Apartment Alcohol intake: current Alcohol intake frequency: holidays/special occasions only Comment: once Q 3 month 4 drinks Patient Tobacco Use Status: Never used Tobacco Years Smoked: stopped 2021, MJ e-Cigarette/Vaping Use: Never Used Second Hand Smoke Exposure: No Substance Use Type: Marijuana Advance Directives: No Advance Directives Information Provided: Yes Do you have a plan to hurt others: No Plan service: No Current occupational status: employed Cognitive needs: No Hearing needs: No Vision needs: Yes Physical Exam Vital Signs: Vital Signs: Last Vital Signs Temp 97.7 F 02/11/24 12:03 Pulse 60 02/11/24 12:03 Resp 16 02/11/24 12:03 BP 150/76 H 02/11/24 12:03 Pulse Ox 96 02/11/24 12:03 O2 Del Method Room Air 02/11/24 12:03 BMI result Body Mass Index 24.3 Const: General: cooperative, no acute distress, alert and awake Nutritional Appearance: well nourished Orientation/consciousness: patient oriented x3 Limitations: no limitations HEENT: Head: Yes normal to inspection and Yes atraumatic Ears: hearing gr ossly normal bilaterally and external ears normal General nose exam: Normal external nose present, no nasal discharge noted and no epistaxis Face and sinus: Yes normal facial exam, No abrasion and No laceration Mouth: Normal oral and palatal mucosa present, no drooling and no muffled voice Eyes: General: appearance normal, both eyes and all related structures Periorbital: periorbital findings normal Eyelids: Yes eyelids normal Conjunctivae: conjunctivae normal Pupils: Equal, round and reactive pupils present EOM: EOMs intact bilaterally Neck: Neck: Yes normal visual inspection, Yes full ROM and Yes no lymphadenopathy Chest: Chest palpation & inspection: normal inspection of the chest Resp: Effort & Inspection: normal respiratory effort and able to speak in c omplete sentences GI: Inspection: Yes normal to inspection : Male General Exam: Yes normal external exam, No edema, No erythema, No Genital lesions present and No tenderness Penis: normal penis, uncircumcised, no ecchymosis, not edematous, not erythematous, no pustules, no vesicles and No Genital lesions present Neuro: General: patient oriented x3 and moves all extremities Cranial nerves: Yes Equal, round and reactive pupils present Cognition (Neuro): normal cognition Extrem: General: Yes normal to inspection, Yes full ROM and Yes capillary refill normal Psych: Appearance: grossly normal Mental Status: mental status grossly normal Affect: normal affect Attitude: cooperative Thought process: Normal thought process present Thought content: Normal thought content present Insight: Good insight present (Psych) Medications Administered Discontinued Medications Generic Name Dose Route Start Last Admin Trade Name Freq PRN Reason Stop Dose Admin Ceftriaxone Sodium 500 mg/ 0 mg 02/11/24 11:36 02/11/24 11:55 Lidocaine HCl 1 ml IM 02/11/24 11:37 1 kit ONCE ONE Administration Doxycycline Monohydrate 100 mg 02/11/24 11:36 02/11/24 11:55 Doxycycline Monohydrate 100 Mg Capsule PO 02/11/24 11:37 100 mg ONCE ONE Administration Medical Decision Making Medical Decision Making [facility] Narrative: Patient is a 33 year old assigned male at with a history of anxiety and GERD presenting to the emergency department today with scrotal pain, painful urination, and penile discharge. Patient's physical exam was unremarkable as noted in the physical exam portion of this note. I performed the patient's exam with Rod as a dobby looms pegger. Patient's urine showed no acute process. Patient's CT/NG was negative. Patient's scrotal US showed small bilateral hydroceles and simple appearing subcentimeter bilateral testicular cysts. I explained my physical exam findings as well as all test results to the patient. I answered all questions asked by the patient. Given patient's multitude of symptoms and negative work up / findings, will cover for infection and refer to urology. It is possible that some of the patient's symptoms are from a nerve impingement of the back however, the patient denies trauma or back pain therefore, will start with urology. I stressed the importance of the patie nt taking his medication as directed (either prescribed or as the over the counter packaging recommends). I stressed the importance of the patient following up with his primary care provider and a urologist. I stressed the importance of the patient returning to the emergency department immediately if his symptoms were to worsen or if he were to develop any dizziness, shortness of breath, difficulty breathing, chest pain, blurry vision, loss of vision, nausea, vomiting, abdominal pain, fever, chills, back pain, or any other complaints. Patient verbalized agreement and understanding with this treatment plan and discharge. Differential Diagnosis Differential Diagnoses: The differential diagnosis associated with the presentation includes Scrotal pain Scrotal swelling Penile discharge STI Gonorrhea Chlamydia Epididymitis Admission/Observation Consideration of admission/observation: Escalation of care including admission/observation considered Patient would have been admitted to the hospital had his work up had any findings where hospital admission was appropriate and his clinical presentation warranted hospital admission. Lab Data [facility] Lab Attestation statement: I reviewed the patient's lab results. My interpretation of these results are in the [facility] Rationale portion of this note. Labs: Lab Results 02/11/24 Range/Units 09:07 Urine Color Yellow Urine Appearance Clear Urine pH 6.5 (5.0-9.0) Ur Specific [place] 1.010 (1.005-1.025) Urine Protein Negative (Neg-Trace) mg/dL Urine Glucose (UA) Negative (Negative) mg/dL Urine Ketones Negative (Negative) mg/dL Urine Blood Negative (Negative) Urine Nitrite Negative (Negative) Ur Leukocyte Esterase Negative (Negative) Chlam trachomat DNA PCR NOT DETECTED (Not Detect.) N.gonorrhoeae DNA (PCR) NOT DETECTED (Not Detect.) Independent Interpretation I performed an independent interpretation of an: Ultrasound Interpretation: My interpretation is in agreement with the radiologist's impression of this imaging study. EXAMINATION: US SCROTUM CLINICAL INFORMATION: Scrotal pain/swelling. COMPARISON: CT abdomen/pelvis 08/17/2023. TECHNIQUE: A sonogram of the scrotum was performed assessing santillan-scale appearance and color Doppler flow. Spectral Doppler analysis of the arterial and venous flow were performed in the testes bilaterally. FINDINGS: RIGHT: Right testicle measures 4 x 2.1 x 2.6 cm, volume 11.6 mL. Simple appearing 0.2 cm testicular cyst, otherwise no parenchymal lesions. Spectral Doppler analysis of the arterial and venous flow is normal in the right testis. Right epididymal head is normal in size. Small hydrocele. No varicocele. Right epididymal Doppler flow is normal. LEFT: Left testicle measures 3.7 x 1.9 x 2.9 cm, volume 10.6 mL. Simple appearing 0.2 cm testicular cyst, otherwise no parenchymal lesions. Spectral Doppler analysis of the arterial and venous flow is normal in the left testis. Left epididymal head is normal in size. Small hydrocele. No varicocele. Left epididymal Doppler flow is normal. US/US scrotum IMPRESSION: 1. Small bilateral hydroceles. 2. Simple-appearing subcentimeter bilateral testicular cysts. Electronically signed by: Leana Rowland MD 02/11/2024 11:15 AM EDT RP Dictated By: Мария Rowland Signed By: Electronically signed by Мария Rowland 02/11/24 1115 Radiology Impression Discussion of test interpretation with radiology: I have reviewed the radiologist's reading. Prescription Management I considered prescription management with: Antibiotic (given patient's clinical presentation will cover with prophylactic antibiotic) Discharge Plan Discharge Clinical Impression: Pain in scrotum Patient Disposition: Home, Self-Care Instructions: Scrotal Pain (ED) Additional Instructions: Follow up with your primary care provider and a urologist. Return to the emergency department immediately if your symptoms worsen or if you develop any dizziness, shortness of breath, difficulty breathing, chest pain, blurry vision, loss of vision, nausea, vomiting, abdominal pain, fever, chills, back pain, or any other complaints. Prescriptions: New doxycycline hyclate 100 mg tablet 100 mg PO BID 7 Days Qty: 14 0RF No Action sertraline 25 mg tablet 25 mg PO DAILY Qty: 30 2RF Referrals: [facility] [Provider Group] (Call to establish and follow up with a urologist to discuss your scrotal pain. ) Osvaldo White MD [Primary Care Provider] - Stand Alone Forms: Work/School Release Interventions: ED Discharge Assessment Last Done: 02/11/24 12:03 Discharge Date/Time: 02/11/24 12:05 Print Language: Kinyarwanda
[2024-02-11 11:44] LABS: CT PCR NOT DETECTED (Not Detect.); NG PCR NOT DETECTED (Not Detect.)
[2024-02-11] MEDS: cefTRIAXone sodium 500 MG, Lidocaine HCl 1 % MPF 1 ML IM (11:55)
[2024-02-11] MEDS: Doxycycline Monohydrate 100 MG CAPSULE PO (11:55)
[2024-02-11 12:03] VITALS: BP 150/76; PULSE 60; RESP 16; TEMP 36.5; O2SAT 96
== END 2024-02-11 12:05 | disposition home or self-care (01) ==
PROVIDERS: Emergency Provider Emergency Medicine; PCP Internal Medicine
DX: N50.82 Scrotal pain (principal); R36.9 Urethral discharge, unspecified
CPT/HCPCS: 76870; 81003; 87491; 87591; 93975; 96372; 99282; 99284; J0696

== ENCOUNTER 2024-02-29 07:43 | Outpatient (AMB) | payer OTHER, SELFPAY ==
[2024-02-29 07:52] VITALS: BP 110/58; PULSE 46; O2SAT 98; BMI 23.3
--- NOTE | 2024-02-29 07:52 | MHC.PC.OV ---
Vital Signs 02/29/24 07:52 Height 5 ft 8 in Weight 153 lb BMI 23.3 BP 110/58 L Blood Pressure Location Lt brachial Position Sitting Pulse 46 L Pulse Source Pulse Oximeter Pulse Oximetry (%) 98 Oxygen Delivery Method Room Air Intake Visit Reasons: [facility] [place] 02/10 groin pain Allergies No Known Allergies Allergy (Verified 02/29/24 07:52) Tobacco use date assessed: 10/06/23 Dental Screening Dental Screen Date: 10/06/23 HPI [facility] [place] 02/10 groin pain HPI Details 33-year-old male with a history of GERD coming in for ER follow up. Review of the notes, patient was seen in [facility] ED 02/11/2024 for scrotum discomfort and pain.?Scrotal ultrasound showed small bilateral hydroceles.?Patient was given doxycycline to cover for possible infection and referred to Urology. Today he tells us he had a similar problem back in October with the scrotal pain was treated with doxycycline and symptoms resolved. Symptoms began again at the end of December/January with scrotal pain and doxycycline has helped once again. His symptoms have almost completely resolved after the antibiotic however does still endorse some intermittent soreness at last 2-3 seconds. He also mentions he had some very mild burning with ejaculation. Denies any discharge, fevers, nausea vomiting or abdominal pain. He is scheduled to follow up with Urology March 2024. [facility] Medical History Lower abdominal pain Leukopenia Thrombocytopenia Abnormal ultrasound of liver Surgical History H/O left wrist surgery Family History Father Hx of type 1 diabetes mellitus Mother Hx of heart failure Brain aneurysm Paternal Grandfather Colon cancer Maternal Aunt Brain aneurysm Stomach cancer Social History Housing: Apartment Alcohol intake: current Alcohol intake frequency: holidays/special occasions only Comment: once Q 3 month 4 drinks Patient Tobacco Use Status: Never used Tobacco Tobacco use type: Cigarette Years Smoked: stopped 2021, MJ e-Cigarette/Vaping Use: Never Used Second Hand Smoke Exposure: No Substance Use Type: Marijuana service: No Current occupational status: employed Cognitive needs: No Hearing needs: No Vision needs: Yes Questionnaire PHQ-9 Over the last 2 weeks, how often have you been bothered by any of the following problems? 1. Little interest or pleasure in doing things: not at all 2. Feeling down, depressed, or hopeless: not at all 3. Trouble falling or staying asleep, or sleeping too much: not at all 4. Feeling tired or having little energy: not at all 5. Poor appetite or overeating: not at all 6. Feeling bad about yourself - or that you are a failure or have let yourself or your family down: not at all 7. Trouble concentrating on things, such as reading the newspaper or watching television: not at all 8. Moving or speaking so slowly that other people could have noticed. Or the opposite - being so fidgety or restless that you have been moving around a lot more than usual: not at all 9. Thoughts that you would be better off or of hurting yourself in some way: not at all Total score: 0 Depression Screening Interpretation: Negative Depression Screening Done: Yes Source: Developed by Drs. Inderjit Bailey, J Carlos Lynch and colleagues, with an educational ursula from [employer]. Thrive Questionnaire Date Thrive assessed: 10/06/23 AUDIT C Alcohol Use Questionnaire (AUDIT-C) 1. How often do you have a drink containing alcohol?: 2-4 times a month 2. How many drinks containing alcohol do you have on a typical day when you are drinking?: 1 or 2 3. How often do you have six or more drinks on one occasion?: Less than monthly Total Score: 3 SHIVA-7 AMB Questionnaire SHIVA-7 Date SHIVA - 7 assessed: 10/06/23 Source: Developed by Drs. Inderjit Bailey, J Carlos Lynch and colleagues, with an educational ursula from [employer]. Review of Systems Const Denies body aches, Denies chills and Denies fever(s) Eyes Reports no additional complaints ENT Reports no additional complaints Card Denies chest pain, Denies irregular heart rhythm, Denies lightheadedness and Denies dyspnea Resp Denies dyspnea GI Denies abdominal pain, Denies constipation, Denies diarrhea, Denies nausea and Denies vomiting Reports as per HPI Musc Reports no additional complaints Skin/Breast Reports system reviewed and no additional complaints, except as documented Neuro Reports no additional complaints Physical exam (Primary Care) Vital Signs: Last Vital Signs Pulse 46 L 02/29/24 07:52 BP 110/58 L 02/29/24 07:52 Pulse Ox 98 02/29/24 07:52 Oxygen Delivery Method Room Air 02/29/24 07:52 BMI result Body Mass Index 23.3 Tobacco/Smoking Status: Tobacco use Status Tobacco use date assessed 10/06/23 02/29/24 07:56 Patient Tobacco Use Status Never used Tobacco 02/29/24 07:56 Tobacco use type Cigarette 02/29/24 07:56 e-Cigarette/Vaping Use Never Used 02/29/24 07:56 PHQ-9: PHQ-9 Score PHQ-9: Total score 0 02/29/24 07:56 Depression Screening Interpretation: Negative Thrive Assessment: Date of Thrive Assessment Date Thrive assessed 10/06/23 02/29/24 07:56 Const General: cooperative, healthy appearing, comfortable and no acute distress Orientation/consciousness: patient oriented x3 HENMT Head: Yes normocephalic Ears: hearing grossly normal bilaterally General nose exam: Normal external nose present Eyes General: appearance normal, both eyes and all related structures Conjunctivae: conjunctivae normal Neck Neck: Yes full ROM and Yes no lymphadenopathy Resp Effort & Inspection: normal respiratory effort Auscultation: clear to auscultation bilaterally, no crackles, no rales, no rhonchi and no wheezes Cardio Rate: regular rate Rhythm: regular rhythm Skin General skin exam: no rashes or lesions noted Neuro General: patient oriented x3 Gait exam (Neuro): Normal gait present Extrem General: Yes normal to inspection, Yes full ROM and No edema Psych Affect: normal affect Attitude: cooperative Insight: Good insight present (Psych) Judgement: Good judgement present (Psych) Assessment and Plan Assessment & Plan (1) Pain in scrotum: Code(s): N50.82 - Scrotal pain Plan: Symptoms have completely resolved following completion of doxycycline. Denies any pain in the scrotum except for 1 episode of soreness which last 2 seconds and resolved spontaneously, denies any discharge or fevers. Advised patient to follow up with Urology in March or sooner if symptoms worsen or new symptoms arise. Plan This note was constructed using voice recognition software. While every effort has been made to ensure accuracy and renewable energy technician, still areas may have been included sometimes these areas may affect the content or meeting of the given symptoms. Total time spent caring for the patient today was 30 minutes. This includes time spent before the visit reviewing the chart, time spent during the visit, and time spent after the visit and documentation. Coding Level of Care Code Est Pt Level 3 (89794) Diagnoses Pain in scrotum N50.82
== END 2024-02-29 08:12 | disposition home or self-care (01) ==
PROVIDERS: PCP Internal Medicine
DX: N50.82 Scrotal pain (principal)
CPT/HCPCS: 99213

== ENCOUNTER 2024-03-11 09:21 | Outpatient (REF) | payer OTHER, SELFPAY ==
[2024-03-11 10:35] LABS: Appearance Urine Clear; Color Urine Yellow; Glucose Urine UA Negative (Negative); Leukocyte Esterase Urine Negative (Negative); Nitrite Urine Negative (Negative); PH 6.5 (5.0-9.0); Urine Blood Negative (Negative); Urine Ketones Negative (Negative); Urine Protein Negative (Neg-Trace)
== END 2024-03-11 09:22 | disposition home or self-care (01) ==
LOC: HO.LAB 09:21
PROVIDERS: PCP Internal Medicine; Visit Provider Internal Medicine
DX: R35.0 Frequency of micturition (principal)
CPT/HCPCS: 81003

== ENCOUNTER 2024-03-22 08:18 | Outpatient (AMB) | payer OTHER, SELFPAY ==
[2024-03-22 08:32] VITALS: BP 108/60; PULSE 49; O2SAT 98; BMI 23.4
--- NOTE | 2024-03-22 08:32 | A.OFFPC_ITS ---
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: No Accompanied by: Self / Same As Patient Allergies No Known Allergies Allergy (Verified 03/22/24 08:33) Medication List - Last Reconciled 03/22/24 by Osvaldo White MD omeprazole 20 mg PO DAILY sertraline 25 mg PO DAILY Tobacco use date assessed: 10/06/23 Dental Screening Dental Screen Date: 03/22/24 Did you have a dental visit in the last 12 months?: No Did you have a dental problem in the last 6 months where you did not have access to dental care?: No Was dental information given to patient?: Patient has dentist HPI Follow up HPI Details 33-year-old male with GERD generalized a nxiety disorder test seen in February 2024 having scrotal pain. Review of the notes has seen Neurology in 10/09/2023 diagnosis of urethritis. occ pain on the suprapubic area. but this has resolved [facility] [place] Medical History Lower abdominal pain Leukopenia Thrombocytopenia Abnormal ultrasound of liver Surgical History H/O left wrist surgery Family History Father Hx of type 1 diabetes mellitus Mother Hx of heart failure Brain aneurysm Paternal Grandfather Colon cancer Maternal Aunt Brain aneurysm Stomach cancer Social History Housing: Apartment Alcohol intake: current Alcohol intake frequency: holidays/special occasions only Comment: once Q 3 month 4 drinks Patient Tobacco Use Status: Former Tobacco user Tobacco use type: Cigarette Years Smoked: stopped 2021, MJ e-Cigarette/Vaping Use: Never Used Second Hand Smoke Exposure: No Substance Use Type: Marijuana service: No Current occupational status: employed Current occupational exposures/hazards: No Cognitive needs: No Hearing needs: No Vision needs: Yes Questionnaire Thrive Questionnaire Date Thrive assessed: 10/06/23 Are you currently unemployed and looking for a job?: No SHIVA-7 AMB Questionnaire SHIVA-7 Date SHIVA - 7 assessed: 10/06/23 Source: Developed by Drs. Inderjit Bailey, Urszula Portillo, J Carlos Chiu and colleagues, with an educational ursula from [employer]. Physical exam (Primary Care) Vital Signs: Last Vital Signs Pulse 49 L 03/22/24 08:32 BP 108/60 03/22/24 08:32 Pulse Ox 98 03/22/24 08:32 Oxygen Delivery Method Room Air 03/22/24 08:32 BMI result Body Mass Index 23.4 Tobacco/Smoking Status: Tobacco use Status Tobacco use date assessed 10/06/23 03/22/24 08:36 Patient Tobacco Use Status Former Tobacco user 03/22/24 08:36 Tobacco use type Cigarette 03/22/24 08:36 e-Cigarette/Vaping Use Never Used 03/22/24 08:36 Thrive Assessment: Date of Thrive Assessment Date Thrive assessed 10/06/23 03/22/24 08:36 Const General: alert; No acute distress Eyes Conjunctivae: conjunctivae normal Resp Auscultation: clear to auscultation bilaterally Cardio Rate: regular rate Rhythm: regular rhythm GI Inspection: Yes normal to inspection Extrem General: Yes normal to inspection and No edema Office Procedures Flu Questionnaire Does the patient have a severe egg allergy?: No Immunizations Fluarix Triv [id number] (PF) 45 mcg (15 mcg x 3)/0.5 mL IM syringe Performing Provider: Osvaldo White MD [facility] Documented (not given) by: CLEO Pavon on 03/22/24 08:36 Reason Not Given: Patient Refused Coding Level of Care Code Est Pt Level 4 (50270) Diagnoses Generalized anxiety disorder F41.1 Gastroesophageal reflux disease without esophagitis K21.9 Esophagitis presence: without esophagitis Pain in scrotum N50.82 Assessment & Plan Assessment & Plan (1) Generalized anxiety disorder: Comment: declined counselling referral(03/2024) Code(s): F41.1 - Generalized anxiety disorder Category: Medical Plan: Continue with present medication (2) GERD (gastroesophageal reflux disease): Comment: April 2019 Code(s): K21.9 - Gastro-esophageal reflux disease without esophagitis Category: Medical Qualifiers: Esophagitis presence: without esophagitis Qualified Code(s): K21.9 - Gastro-esophageal reflux disease without esophagitis Plan: Avoid the foods that causes that usually spicy foods, tomato products, juices, coffee, soda and foods that your sensitive to. After eating do not lie down, allow 3-4 hours before in lie down. And keep the head of bed above 30 degrees to avoid the acid from going up. (3) Pain in scrotum: Code(s): N50.82 - Scrotal pain Category: Medical Plan: intermittent but not severe. will be seeing Urolopgy 03/30/2024 Orders: Orders Thyroid Stimulating Hormone 6 Months F41.1 - Generalized anxiety disorder Influenza [id number] Immunization Today Z23 - Encounter for immunization Complete Blood Count Auto Diff 6 Months F41.1 - Generalized anxiety disorder Comprehensive Met. Panel 6 Months F41.1 - Generalized anxiety disorder Free T4 (Free Thyroxine) 6 Months F41.1 - Generalized anxiety disorder UA CC w/rflx Micro + Cult 6 Months N50.82 - Scrotal pain, R30.0 - Dysuria
== END 2024-03-22 08:52 | disposition home or self-care (01) ==
PROVIDERS: PCP Internal Medicine; Visit Provider Internal Medicine
DX: Z23 Encounter for immunization (principal)

== ENCOUNTER → 2024-03-22 08:18 | Outpatient (BNVA) | payer OTHER, SELFPAY | PROVIDERS: PCP Internal Medicine; Visit Provider Internal Medicine | DX: F41.1 Generalized anxiety disorder (principal); K21.9 Gastro-esophageal reflux disease without esophagitis; N50.82 Scrotal pain; Z28.21 Immunization not carried out because of patient refusal | CPT/HCPCS: 90471 ==

== ENCOUNTER 2024-03-29 11:30 | Outpatient (AMB) | payer OTHER, SELFPAY ==
--- NOTE | 2024-03-29 11:32 | A.OFFVIS_ITS ---
Intake Visit Reasons: ER F/U Intake Note: Patient presents today for ER follow up visit: scrotal pain [facility] ER: 02/11/24 Meds- None Allergies to Antibiotic- No Known Allergies Blood Thinner- None Ladle Filler Required: No Accompanied by: Self / Same As Patient Allergies No Known Allergies Allergy (Verified 03/29/24 12:05) Medication List - Last Reconciled 03/29/24 by EVIE Schwarz omeprazole 20 mg PO DAILY HPI Comments Details: Dilip is a very pleasant 33-year-old male patient of Dr. White. He has a past medical history of leukopenia and thrombocytopenia. He presents to the office today for follow-up. Of note, patient was seen approximately 6 months ago at which time he was made p.r.n. as lower urinary tract symptoms he had been experiencing has since subsided since his new patient appointment. However, in discussion with the patient today he reports having seeked emergency room care approximately 6 weeks ago for scrotal pain and penile discharge he had been experiencing. In review of patient's chart it appears scrotal ultrasound was ordered and performed. These results reviewed with the patient today. Small bilateral hydroceles. Simple appearing subcentimeter bilateral testicular cysts. Patient reports having completed antibiotic therapy as prescribed by ER physician and feels symptoms have completely subsided. When asked she does report to be sexually active with 1 partner his fiancee. He otherwise denies any bothersome urinary issues or concerns. He denies urinary urgency, urinary frequency, incontinence, nocturia, hematuria, dysuria, foul smelling urine, changes to urinary stream, flank pain, fever, and or chills. He is happy with his current voiding parameters. In office urinalysis results reviewed with the patient today. He otherwise offers no other issues or concerns at this time. [facility] Medical History Lower abdominal pain Leukopenia Thrombocytopenia Abnormal ultrasound of liver Surgical History H/O left wrist surgery Family History Father Hx of type 1 diabetes mellitus Mother Hx of heart failure Brain aneurysm Paternal Grandfather Colon cancer Maternal Aunt Brain aneurysm Stomach cancer Social History Housing: Apartment Alcohol intake: current Alcohol intake frequency: holidays/special occasions only Comment: once Q 3 month 4 drinks Patient Tobacco Use Status: Former Tobacco user Tobacco use type: Cigarette Years Smoked: stopped 2021, MJ e-Cigarette/Vaping Use: Never Used Second Hand Smoke Exposure: No Substance Use Type: Marijuana service: No Current occupational status: employed Current occupational exposures/hazards: No Cognitive needs: No Hearing needs: No Vision needs: Yes Review of Systems Const All systems reviewed & are unremarkable except as noted in HPI and below Physical Exam Const General: cooperative, healthy appearing, comfortable, no acute distress, well developed, alert and awake Orientation/consciousness: patient oriented x3 Limitations: no limitations HEENT Head: Yes normal to inspection, Yes normocephalic and Yes atraumatic Ears: hearing grossly normal bilaterally Eyes General: appearance normal, both eyes and all related structures Neck Neck: Yes normal visual inspection and Yes trachea midline Chest Chest palpation & inspection: normal inspection of the chest Resp Effort & Inspection: normal respiratory effort and able to speak in complete sentences Cardio Rate: regular rate GI Inspection: Yes normal to inspection General: Yes no CVA tenderness Back/Spine/Pelvis Back: no CVA tenderness Skin General skin exam: no rashes or lesions noted Neuro General: patient oriented x3 Extrem General: Yes normal to inspection Psych Appearance: grossly normal and well kempt Mental Status: mental status grossly normal Speech and movement: Normal speech and movement present and Clear speech present Affect: normal affect Attitude: cooperative Thought process: Normal thought process present Thought content: Normal thought content present Insight: Fair insight present (Psych) Judgement: Fair judgement present (Psych) Results AMB Urinalysis, Automated UA Leukoctes Cancelled Nina/uL Last Edit by Wei Blair on 03/29/24 14:40 UA Leukoctes previously reported as 0 Wei Blair 03/29/24 14:40 UA Nitrite Cancelled Last Edit by Wei Blair on 03/29/24 14:40 UA Urobilinogen Cancelled mg/dL Last Edit by Wei Blair on 03/29/24 14:4 0 UA Urobilinogen previously reported as 0.2 Wei Blair 03/29/24 14:40 UA Protein Cancelled mg/dL Last Edit by Wei Blair on 03/29/24 14:40 UA Protein previously reported as 0 Wei Blair 03/29/24 14:40 UA pH Cancelled Last Edit by Wei Blair on 03/29/24 14:40 UA pH previously reported as 6.5 Wei Blair 03/29/24 14:40 UA Blood Cancelled Yordy/uL Last Edit by Wei Blair on 03/29/24 14:40 UA Blood previously reported as 0 Wei Blair 03/29/24 14:40 UA Specific [place] Cancelled Last Edit by Wei Blair on 03/29/24 14:40 UA Specific [place] previously reported as 1.010 Wei Blair 03/29/24 14:40 UA Ketone Cancelled Last Edit by Wei Blair on 03/29/24 14:40 UA Bilirubin Cancelled mg/dL Last Edit by Wei Blair on 03/29/24 14:40 UA Bilirubin previously reported as 0 LucCyberXnatalia Blair 03/29/24 14:40 UA Glucose Cancelled mg/dL Last Edit by LucCyberXnatalia Blair on 03/29/24 14:40 UA Glucose previously reported as 0 LucEmotient Johnnie 03/29/24 14:40 CANCELLED duplicate AMB Urinalysis, Automated UA Leukoctes 0 Nina/uL Last Edit by Wei Blair on 03/29/24 11:53 UA Nitrite Last Edit by Wei Blair on 03/29/24 11:53 UA Urobilinogen 0.2 mg/dL Last Edit by Wei Blair on 03/29/24 11:53 UA Protein 0 mg/dL Last Edit by Wei Blair on 03/29/24 11:53 UA pH 6.5 Last Edit by Wei Blair on 03/29/24 11:53 UA Blood 0 Yordy/uL Last Edit by Wei Hoskinsantonio on 03/29/24 11:53 UA Specific [place] 1.010 Last Edit by Wei Hoskinsantonio on 03/29/24 11:53 UA Ketone Negative Last Edit by Wei Hoskinsantonio on 03/29/24 11:53 UA Bilirubin 0 mg/dL Last Edit by Wei Hoskinsantonio on 03/29/24 11:53 UA Glucose 0 mg/dL Last Edit by Wei Hoskinsantonio on 03/29/24 11:53 Results Reviewed Results Reviewed: Laboratory Last Values Urine pH (Auto) 6.5 03/29/24 11:51 Specific [place] (Auto) 1.010 03/29/24 11:51 Urine Protein (Auto) 0 mg/dL 03/29/24 11:51 Glucose (UA)(Auto) 0 mg/dL 03/29/24 11:51 Urine Ketones (Auto) Negative 03/29/24 11:51 Urine Blood (Auto) 0 Yordy/uL 03/29/24 11:51 Urine Nitrite (Auto) Cancelled 03/29/24 11:41 Urine Bilirubin (Auto) 0 mg/dL 03/29/24 11:51 Urine Urobilinogen (Auto) 0.2 mg/dL 03/29/24 11:51 Leukocyte Esterase (Auto) 0 Nina/uL 03/29/24 11:51 Date of Service: 02/11/24 EXAMINATION: US SCROTUM FINDINGS: RIGHT: Right testicle measures 4 x 2.1 x 2.6 cm, volume 11.6 mL. Simple appearing 0.2 cm testicular cyst, otherwise no parenchymal lesions. Spectral Doppler analysis of the arterial and venous flow is normal in the right testis. Right epididymal head is normal in size. Small hydrocele. No varicocele. Right epididymal Doppler flow is normal. LEFT: Left testicle measures 3.7 x 1.9 x 2.9 cm, volume 10.6 mL. Simple appearing 0.2 cm testicular cyst, otherwise no parenchymal lesions. Spectral Doppler analysis of the arterial and venous flow is normal in the left testis. Left epididymal head is normal in size. Small hydrocele. No varicocele. Left epididymal Doppler flow is normal. IMPRESSION: 1. Small bilateral hydroceles. 2. Simple-appearing subcentimeter bilateral testicular cysts. Assessment & Plan Assessment & Plan (1) Lower urinary tract symptoms: Code(s): R39.9 - Unspecified symptoms and signs involving the genitourinary system Category: Medical (2) UTI symptoms: Code(s): R39.9 - Unspecified symptoms and signs involving the genitourinary system Category: Medical Plan In office urinalysis results reviewed with the patient today; as noted above. Recent scrotal ultrasound results reviewed with the patient today; as noted above Patient currently denies any bothersome urinary issues or concerns. He reports to be happy with current voiding parameters. He reports symptoms he had been experiencing has since subsided. Discussed at length potential causes for lower urinary tract symptoms patient had been experiencing. Discussed, educated, and stressed the importance of drinking plenty of water daily. Follow-up in 3 months; or sooner with any issues, concerns, and or questions. Orders: Orders AMB Urinalysis Automated Today Z13.9 - Encounter for screening, unspecified Patient Instructions: The patient had an opportunity to ask questions regarding the treatment plan. All questions were answered. Physical exam, labs, and imaging were discussed and reviewed in detail. As well as risks, benefits, and discussion of treatment choices. No major barriers to understanding were identified. The patient expressed understanding and agreement with the above treatment plan. The patient was made aware they should contact our office by phone for worsening of their current condition, the appearance of new symptoms, or with any questions or concerns. Compliance is encouraged with any medications and follow up testing that is ordered. It is a privilege to be allowed the opportunity to participate in? your urological care.? Again, if you have any questions or concerns If you have any questions or concerns please do not hesitate to contact me. The office is [phone]. This note is constructed using voice recognition software. While every effort has been made to ensure accuracy appellate court judge errors may have been included. Yours sincerely, EVIE Schwarz Coding Level of Care Code Est Pt Level 3 (32491) Diagnoses Lower urinary tract symptoms R39.9 UTI symptoms R39.9
== END 2024-03-29 12:05 | disposition home or self-care (01) ==
PROVIDERS: PCP Internal Medicine; Visit Provider Nurse Practitioner Family
DX: Z13.9 Encounter for screening, unspecified (principal); R39.9 Unspecified symptoms and signs involving the genitourinary system
CPT/HCPCS: 99213

== ENCOUNTER → 2024-03-29 11:30 | Outpatient (BNVA) | payer OTHER, SELFPAY | PROVIDERS: PCP Internal Medicine; Visit Provider Nurse Practitioner Family | DX: R39.9 Unspecified symptoms and signs involving the genitourinary system (principal) | CPT/HCPCS: 81003 ==

== ENCOUNTER 2024-07-03 08:33 | Outpatient (AMB) | payer OTHER, SELFPAY ==
--- NOTE | 2024-07-03 08:38 | A.OFFVIS_ITS ---
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 White. He has a past medical history of leukopenia and thrombocytopenia. He presents to the office today for follow-up of his bilateral small hydroceles. In discussion with the patient today reports to be doing and feeling well. He denies having had any bothersome scrotal pain/discomfort since his last office visit here approximately 3 months ago. He denies any bothersome urinary issues or concerns. Previous workup has included a scrotal ultrasound 02/11 noting small bilateral hydroceles. Simple appearing subcentimeter bilateral testicular cysts. She does continue to be sexually active with 1 partner his fiancee. He denies urinary urgency, urinary frequency, incontinence, nocturia, hematuria, dysuria, foul smelling urine, changes to urinary stream, flank pain, fever, and or chi lls. He is happy with his current voiding parameters. In office urinalysis results reviewed with the patient today. We discussed at length potential causes of hydroceles as well as further treatment options and risks and benefits of these treatment options. He otherwise offers no other issues or concerns at this time. [facility] Medical History Lower abdominal pain Leukopenia Thrombocytopenia Abnormal ultrasound of liver Surgical History H/O left wrist surgery Family History Father Hx of type 1 diabetes mellitus Mother Hx of heart failure Brain aneurysm Paternal Grandfather Colon cancer Maternal Aunt Brain aneurysm Stomach cancer Social History Housing: Apartment Alcohol intake: current Alcohol intake frequency: holidays/special occasions only Comment: once Q 3 month 4 drinks Patient Tobacco Use Status: Former Tobacco user Tobacco use type: Cigarette Years Smoked: stopped 2021, MJ e-Cigarette/Vaping Use: Never Used Second Hand Smoke Exposure: No Substance Use Type: Marijuana service: No Current occupational status: employed Current occupational exposures/hazards: No Cognitive needs: No Hearing needs: No Vision needs: Yes Review of Systems Const All systems reviewed & are unremarkable except as noted in HPI and below Physical Exam Const General: cooperative, healthy appearing, comfortable, no acute distress, well developed, alert and awake Orientation/consciousness: patient oriented x3 Limitations: no limitations HEENT Head: Yes normal to inspection, Yes normocephalic and Yes atraumatic Ears: hearing grossly normal bilaterally Eyes General: appearance normal, both eyes and all related structures Neck Neck: Yes normal visual inspection and Yes trachea midline Chest Chest palpation & inspection: normal inspection of the chest Resp Effort & Inspection: normal respiratory effort and able to speak in complete sentences Cardio Rate: regular rate GI Inspection: Yes normal to inspection General: Yes no CVA tenderness Back/Spine/Pelvis Back: no CVA tenderness Skin General skin exam: no rashes or lesions noted Neuro General: patient oriented x3 Extrem General: Yes normal to inspection Psych Appearance: grossly normal and well kempt Mental Status: mental status grossly normal Speech and movement: Normal speech and movement present and Clear speech present Affect: normal affect Attitude: cooperative Thought process: Normal thought process present Thought content: Normal thought content present Insight: Fair insight present (Psych) Judgement: Fair judgement present (Psych) Office Procedures Post Void Residual Post Residual Void Post Void Residual (PVR): 0 [id number] Void Residual by ultrasound Results AMB Urinalysis, Automated UA Leukoctes 0 Nina/uL Last Edit by JULIA Upton on 07/03/24 08:53 UA Nitrite Negative Last Edit by JULIA Upton on 07/03/24 08:53 UA Urobilinogen 0.2 mg/dL Last Edit by JULIA Upton on 07/03/24 08:5 3 UA Protein 0 mg/dL Last Edit by JULIA Upton on 07/03/24 08:53 UA pH 6.0 Last Edit by JULIA Upton on 07/03/24 08:53 UA Blood 0 Yordy/uL Last Edit by JULIA Upton on 07/03/24 08:53 UA Specific [place] 1.005 Last Edit by JULIA Upton on 07/03/24 08: 53 UA Ketone Negative Last Edit by JULIA Upton on 07/03/24 08:53 UA Bilirubin 0 mg/dL Last Edit by JULIA Upton on 07/03/24 08:53 UA Glucose 0 mg/dL Last Edit by JULIA Upton on 07/03/24 08:53 Results Reviewed Results Reviewed: Laboratory Last Values Urine pH (Auto) 6.0 07/03/24 08:52 Specific [place] (Auto) 1.005 07/03/24 08:52 Urine Protein (Auto) 0 mg/dL 07/03/24 08:52 Glucose (UA)(Auto) 0 mg/dL 07/03/24 08:52 Urine Ketones (Auto) Negative 07/03/24 08:52 Urine Blood (Auto) 0 Yordy/uL 07/03/24 08:52 Urine Nitrite (Auto) Negative 07/03/24 08:52 Urine Bilirubin (Auto) 0 mg/dL 07/03/24 08:52 Urine Urobilinogen (Auto) 0.2 mg/dL 07/03/24 08:52 Leukocyte Esterase (Auto) 0 Nina/uL 07/03/24 08:52 Assessment & Plan Assessment & Plan (1) Lower urinary tract symptoms: Code(s): R39.9 - Unspecified symptoms and signs involving the genitourinary system Category: Medical (2) Hydrocele, bilateral: Code(s): N43.3 - Hydrocele, unspecified Category: Medical Plan In office urinalysis results reviewed with the patient today; as noted above. Patient currently denies any bothersome urinary issues or concerns. He reports to be happy with current voiding parameters. He reports symptoms he had been experiencing have since subsided. Discussed at length potential causes for lower urinary tract symptoms patient had been experiencing. We discussed seeking medical treatment if symptoms arise. Follow-up p.r.n. Orders: Orders AMB Urinalysis Automated Today Z13.9 - Encounter for screening, unspecified Patient Instructions: The patient had an opportunity to ask questions regarding the treatment plan. All questions were answered. Physical exam, labs, and imaging were discussed and reviewed in detail. As well as risks, benefits, and discussion of treatment choices. No major barriers to understanding were identified. The patient expressed understanding and agreement with the above treatment plan. The patient was made aware they should contact our office by phone for worsening of their current condition, the appearance of new symptoms, or with any questions or concerns. Compliance is encouraged with any medications and follow up testing that is ordered. It is a privilege to be allowed the opportunity to participate in? your urological care.? Again, if you have any questions or concerns If you have any questions or concerns please do not hesitate to contact me. The office is [phone]. This note is constructed using voice recognition software. While every effort has been made to ensure accuracy head refrigerating engineer errors may have been included. Yours sincerely, EVIE Schwarz Coding Level of Care Code Est Pt Level 3 (25095) Diagnoses Lower urinary tract symptoms R39.9 Hydrocele, bilateral N43.3 CPT Codes Post Residual Void - PVR CPT Code: 02010-Evmm Void Residual by ultrasound ([id number])
== END 2024-07-03 09:19 | disposition home or self-care (01) ==
PROVIDERS: PCP Internal Medicine; Visit Provider Nurse Practitioner Family
DX: R39.9 Unspecified symptoms and signs involving the genitourinary system (principal); N43.3 Hydrocele, unspecified; Z13.9 Encounter for screening, unspecified
CPT/HCPCS: 99213

== ENCOUNTER → 2024-07-03 08:33 | Outpatient (BNVA) | payer OTHER, SELFPAY | PROVIDERS: PCP Internal Medicine; Visit Provider Nurse Practitioner Family | DX: N43.3 Hydrocele, unspecified (principal); R39.9 Unspecified symptoms and signs involving the genitourinary system | CPT/HCPCS: 51798; 81003 ==

== ENCOUNTER 2024-10-09 10:14 | Outpatient (AMB) | payer OTHER, SELFPAY ==
[2024-10-09 10:17] VITALS: BP 110/74; PULSE 49; O2SAT 98; BMI 24.8
--- NOTE | 2024-10-09 10:17 | MHC.PC.OV ---
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 Accompanied by: Self / Same As Patient Allergies No Known Allergies Allergy (Verified 10/09/24 10:17) Medication List - Last Reconciled 10/09/24 by Osvaldo White MD omeprazole 20 mg PO DAILY PRN Tobacco use date assessed: 10/09/24 Dental Screening Dental Screen Date: 10/09/24 Did you have a dental visit in the last 12 months?: No Did you have a dental problem in the last 6 months where you did not have access to dental care?: No Was dental information given to patient?: Patient has dentist [facility] Medical History Lower abdominal pain Leukopenia Thrombocytopenia Abnormal ultrasound of liver Surgical History H/O left wrist surgery Family History Father Hx of type 1 diabetes mellitus Mother Hx of heart failure Brain aneurysm Paternal Grandfather Colon cancer Maternal Aunt Brain aneurysm Stomach cancer Social History (Updated 10/09/24 @ 10:35 by Osvaldo White MD) Housing: Apartment Alcohol intake: current Alcohol intake frequency: holidays/special occasions only Comment: once Q 3 month 6 drinks Patient Tobacco Use Status: Former Tobacco user Tobacco use type: Cigarette Years Smoked: stopped 2021, MJ e-Cigarette/Vaping Use: Never Used Second Hand Smoke Exposure: No Substance Use Type: Marijuana service: No Current occupational status: employed Current occupational exposures/hazards: No Cognitive needs: No Hearing needs: No Vision needs: Yes Questionnaire PHQ-9 Over the last 2 weeks, how often have you been bothered by any of the following problems? 1. Little interest or pleasure in doing things: not at all 2. Feeling down, depressed, or hopeless: not at all 3. Trouble falling or staying asleep, or sleeping too much: not at all 4. Feeling tired or having little energy: several days 5. Poor appetite or overeating: not at all 6. Feeling bad about yourself - or that you are a failure or have let yourself or your family down: not at all 7. Trouble concentrating on things, such as reading the newspaper or watching television: not at all 8. Moving or speaking so slowly that other people could have noticed. Or the opposite - being so fidgety or restless that you have been moving around a lot more than usual: not at all 9. Thoughts that you would be better off or of hurting yourself in some way: not at all Total score: 1 Source: Developed by Drs. Inderjit Bailey, Urszula Portillo, J Carlos Chiu and colleagues, with an educational ursula from [employer]. Thrive Questionnaire Date Thrive assessed: 10/09/24 I am a: Patient What is your living situation today?: I have a steady place to live Within the past 12 months, did the food you bought not last and you didn't have the money to get more?: Never true Within the past 12 months, did you worry whether your food would run out before you got money to buy more?: Never true Do you have trouble paying for medicines?: No Do you have trouble getting transportation to medical appointments?: No Do you have trouble paying your heating and electricity bill?: No Do you have trouble taking care of your child, family member or friend?: No Do you have trouble with day-to-day activities such as bathing, preparing meals, shopping, managing finances, etc.?: No Are you currently unemployed and looking for a job?: No Are you interested in more education?: No Please select the resources that you would like help with: None Currently or been in a relationship where the following occur: No concerns reported THRIVE Score: 0 AUDIT C Alcohol Use Questionnaire (AUDIT-C) 1. How often do you have a drink containing alcohol?: 2-4 times a month 2. How many drinks containing alcohol do you have on a typical day when you are drinking?: 1 or 2 3. How often do you have six or more drinks on one occasion?: Less than monthly Total Score: 3 SHIVA-7 AMB Questionnaire SHIVA-7 Date SHIVA - 7 assessed: 10/09/24 Feeling nervous, anxious, or on edge: 0 = Not at all Not being able to stop or control worryin = Not at all Worrying too much about different things: 0 = Not at all Trouble relaxin = Not at all Being so restless that it is hard to sit still: 0 = Not at all Becoming easily annoyed or irritable: 0 = Not at all Feeling afraid as if something awful might happen: 0 = Not at all Total SHIVA-7 score (0-4 normal; 5-9 mild; 10-14 moderate; 15-21 severe): 0 Source: Developed by Drs. Inderjit Bailey, Urszula Portillo, J Carlos Chiu and colleagues, with an educational ursula from [employer]. Review of Systems Const Denies poor appetite and Denies weakness Eyes Denies no additional complaints ENT Reports Normal hearing present, Denies dizziness, Denies nasal congestion, Denies tinnitus and Denies sore throat Card Denies chest pain, Denies syncope, Denies rapid heart rate and Denies dyspnea Resp Denies cough and Denies dyspnea GI Denies change in stool character, Reports constipation, Denies diarrhea, Denies nausea and Denies vomiting Denies dysuria and Denies urinary frequency Neuro Reports Normal hearing present, Denies confusion, Denies dizziness, Denies syncope and Denies weakness Psych Denies confusion Physical exam (Primary Care) Vital Signs: Last Vital Signs Pulse 49 L 10/09/24 10:17 BP 110/74 10/09/24 10:17 Pulse Ox 98 10/09/24 10:17 Oxygen Delivery Method Room Air 10/09/24 10:17 BMI result Body Mass Index 24.8 Tobacco/Smoking Status: Tobacco use Status Tobacco use date assessed 10/09/24 10/09/24 10:23 Patient Tobacco Use Status Former Tobacco user 10/09/24 10:18 Tobacco use type Cigarette 10/09/24 10:18 e-Cigarette/Vaping Use Never Used 10/09/24 10:18 PHQ-9: PHQ-9 Score PHQ-9: Total score 1 10/09/24 10:18 Thrive Assessment: Date of Thrive Assessment Date Thrive assessed 10/09/24 10/09/24 10:18 Currently or been in a relationship where the following occur: No concerns reported Const General: No confusion Orientation/consciousness: No confusion HENMT Head: Yes normocephalic Ears: external ears normal and TM's normal bilaterally Face and sinus: Yes normal facial exam Mouth: moist mucous membranes Throat: Yes tonsils normal Eyes Conjunctivae: conjunctivae normal Pupils: Equal, round and reactive pupils present and Pupil accommodation reflex normal Direct Ophthalmoscopy: normal light reflex Neck Neck: No lymphadenopathy Thyroid: Thyroid normal Chest Chest palpation & inspection: normal inspection of the chest Resp Effort & Inspection: normal respiratory effort and no audible wheezes Auscultation: clear to auscultation bilaterally, no crackles, no wheezes and lung sounds not diminished Cardio Rate: regular rate Rhythm: regular rhythm Peripheral pulses: radial pulses present and dorsalis pedis present GI Palpation (GI): no masses Auscultation: normal bowel sounds and normoactive bowel sounds Rectal Exam - Male: Yes deferred Skin General skin exam: no rashes or lesions noted Rashes: no rashes Neuro General: No confusion Cranial nerves: Yes Equal, round and reactive pupils present and Yes Normal hearing present Cognition (Neuro): normal cognition Gait exam (Neuro): Normal gait present Motor exam (neuro): 5/5 motor strength present throughout Deep tendon reflexes (DTR's): Right brachioradialis reflex intensity grade: 2+, Left brachioradialis reflex intensity grade: 2+, Right patellar reflex intensity grade: 2+ and Left patellar reflex intensity grade: 2+ Extrem General: No edema Coding Level of Care Code Est Pt Prev Care [id number]) Diagnoses Annual physical exam Z00.00 Gastroesophageal reflux disease without esophagitis K21.9 Esophagitis presence: without esophagitis Generalized anxiety disorder F41.1 Hydrocele, bilateral N43.3 Numbness and tingling in left hand R20.0; R20.2 Elevated blood sugar R73.9 Assessment & Plan Assessment & Plan (1) Annual physical exam: Code(s): Z00.00 - Encounter for general adult medical examination without abnormal findings Category: Medical Plan: Patient is advised to eat healthy, keep well hydrated, keep active and have adequate sleep. (2) GERD (gastroesophageal reflux disease): Comment: April 2019 Code(s): K21.9 - Gastro-esophageal reflux disease without esophagitis Category: Medical Qualifiers: Esophagitis presence: without esophagitis Qualified Code(s): K21.9 - Gastro-esophageal reflux disease without esophagitis Plan: Avoid the foods that causes that usually spicy foods, tomato products, juices, coffee, soda and foods that your sensitive to. After eating do not lie down, allow 3-4 hours before in lie down. And keep the head of bed above 30 degrees to avoid the acid from going up. (3) Generalized anxiety disorder: Comment: declined counselling referral(03/2024) Code(s): F41.1 - Generalized anxiety disorder Category: Medical Plan: Stable (4) Hydrocele, bilateral: Code(s): N43.3 - Hydrocele, unspecified Category: Medical Plan: Patient has seen Urology and reassured (5) Numbness and tingling in left hand: Code(s): R20.0 - Anesthesia of skin; R20.2 - Paresthesia of skin Category: Medical (6) Elevated blood sugar: Code(s): R73.9 - Hyperglycemia, unspecified Category: Medical Plan History of Present Illness The patient is a 33-year-old male presenting for a wellness visit and follow-up on previously identified conditions. He has a history of gastroesophageal reflux disease (GERD) and generalized anxiety disorder. The patient reported scrotal pain during a previous visit in March 2024, which was evaluated by a urologist. The patient was diagnosed with bilateral small hydroceles and reassured at that time. A review of the patient's blood work from 2023 showed mild persistent thrombocytopenia over the past two to three years, as well as an elevated fasting blood glucose of 102, despite normal hemoglobin A1c results. 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 A notable family history includes brain aneurysms in the mother and aunt, as well as colon cancer in the grandfather. The patient is aware of potential health issues due to their father's history of diabetes but denies any issues related to prostate disorders in the family. 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 weekend; previous occasional drinking habits noted - No current tobacco use; minimal past use of cannabis - Family status: Has a daughter with whom he actively participates in physical activities - Engages in regular physical activities, such as basketball and using trampoline [id number] Review of Systems - Gastrointestinal: Reports improvement in heartburn since changing diet; denies frequent medication usage - Genitourinary: Denies burning sensation, reports nocturia once per night - Musculoskeletal: Reports tightness occasionally in the trapezius muscle, numbness in fingers - Neurological: Denies dizziness, nausea, vomiting, fever, or swallowing problems - Respiratory/Cardiovascular: Denies dyspnea, chest pain, or heaviness - Other Systems: Denies any problems with hearing; denies recent vision changes besides past exam three years ago Physical Exam General: Cooperative, healthy appearing, comfortable, no acute distress and well developed Orientation: Patient oriented x3 Limitations: No limitations Head: Normal to inspection Ears: Hearing grossly normal bilaterally, a little bit of ear wax but nothing bad Nose: Normal external nose present Face and sinus: Normal facial exam Eyes: Appearance normal, both eyes and all related structures Neck: Normal visual inspection and Yes full ROM Respiratory: Normal respiratory effort and able to speak in complete sentences. Clear to auscultation bilaterally Cardiovascular: Regular rate and rhythm. Normal S1 and S2 GI: Normal to inspection. Soft to palpation and nontender Skin: No rashes or lesions noted Neuro: Patient oriented x3 Extremities: Normal to inspection, some numbness in fingers, possibly related to carpal tunnel syndrome Results - Labs: Mild thrombocytopenia; fasting blood glucose elevated at 102; renal function noted with creatinine at 1.06; liver function normal - Tests and Diagnostics: Review of patient's past blood work and urological findings consistent with bilateral small hydroceles Plan Follow-up is planned for the patient's fasting blood glucose levels, with continued monitoring and dietary modifications recommended due to family history of diabetes. Counseling was provided regarding NSAID usage due to renal health concerns. Monitoring of carpal tunnel syndrome symptoms is advised, with consideration of a wrist brace. No change needed for current GERD and anxiety management practices. The patient should follow up with urology if hydrocele symptoms change. Patient was informed and verbally consented to the use of an ambient scribe for clinic note documentation during this visit. Discussion Notes I discussed with the patient the importance of monitoring his blood glucose levels, given the family history of diabetes, and advised dietary changes to help manage this. I reviewed the laboratory results, explained the significance of creatinine levels, and recommended careful use of NSAIDs to maintain kidney health. The possible carpal tunnel syndrome symptoms were discussed, and I suggested the potential benefit of a wrist brace could be used at night. I reinforced the need for hydration and advised against unnecessary medication that could irritate his GERD. We discussed follow-up blood work, stressing the importance of fasting during the test. The patient was informed about keeping a balanced lifestyle and updating me with any changes in symptoms. Patient Instructions - Monitor blood sugar levels and follow dietary recommendations to prevent diabetes. - Use wrist brace for carpal tunnel symptoms, especially at night. - Limit use of NSAIDs to avoid kidney stress. - Continue current GERD management and dietary habits. - Drink sufficient water daily to maintain kidney function. - Complete fasting blood work as discussed. - Follow instructions given for lab work and check for results availability. - Alert if symptoms such as numbness, changes in urinary habits, or GERD worsen. Orders: Orders Hemoglobin A1c Today R73.9 - Hyperglycemia, unspecified
== END 2024-10-09 11:00 | disposition home or self-care (01) ==
LOC: HO.HMCH 10:14
PROVIDERS: PCP Internal Medicine; Visit Provider Internal Medicine
DX: Z00.00 Encounter for general adult medical examination without abnormal findings (principal); K21.9 Gastro-esophageal reflux disease without esophagitis; F41.1 Generalized anxiety disorder; N43.3 Hydrocele, unspecified; R20.0 Anesthesia of skin; R20.2 Paresthesia of skin; R73.9 Hyperglycemia, unspecified

== ENCOUNTER → 2024-10-09 10:14 | Outpatient (BNVA) | payer OTHER, SELFPAY | PROVIDERS: PCP Internal Medicine; Visit Provider Internal Medicine | DX: Z13.89 Encounter for screening for other disorder (principal) ==

== ENCOUNTER 2024-10-30 07:54 | Outpatient (REF) | payer OTHER, SELFPAY ==
[2024-10-30 08:02] LABS: MANUAL DIFF FLAG NO
[2024-10-30 08:20] LABS: Basophils Percent Auto 0.6 % (0-2); Eosinophils Absolute Auto 0.1 X10*3/uL (0.0-0.4); Eosinophils Percent Auto 2.4 % (0-4); Hematocrit 43.1 % (42.0-52.0); Hemoglobin 14.2 g/dl (14.0-18.0); Lymphocytes Absolute Auto 1.6 X10*3/uL (1.2-4.9); Lymphocytes Percent Auto 31.2 % (20-40); Mean Corpuscular HGB Conc 32.9 g/dl (31.0-36.0); Mean Corpuscular Hemoglobin 30.3 pg (27.0-33.0); Mean Corpuscular Volume 92.1 fL (80.0-98.0); Mean Platelet Volume 11.8 fL (9.4-12.4); Monocytes Absolute Auto 0.5 X10*3/uL (0.1-1.2); Monocytes Percent Auto 9.4 % (2-11); Neutrophils Absolute Auto 2.9 x10*3/uL (2.0-8.3); Neutrophils Percent Auto 56.4 % (45-73); Platelet Count 136 X10*3/uL (160-400); Red Blood Count 4.68 X10*6/uL (4.60-5.80); Red Cell Distribution Width 13.3 % (11.0-16.0); White Blood Count 5.1 X10*3/uL (4.8-10.8)
[2024-10-30 08:24] LABS: Appearance Urine Clear; Color Urine Yellow; Glucose Urine UA Negative (Negative); Leukocyte Esterase Urine Negative (Negative); Nitrite Urine Negative (Negative); Urine Blood Negative (Negative); Urine Ketones Negative (Negative); Urine Protein Negative (Neg-Trace)
[2024-10-30 08:29] LABS: Estimated Average Glucose 108 mg/dL; Hemoglobin A1C 129.7299 umol/L; Hemoglobin A1c % 5.4 % (<6.0); Total Hemoglobin (HGBA1C) 3618.3467 umol/L
[2024-10-30 08:49] LABS: Alanine Aminotransferase 16 U/L (0-40); Albumin Level 4.5 g/dL (3.5-5.0); Alkaline Phosphatase 79 U/L (39-117); Anion Gap 12 (12-20); Aspartate Amino Transferase 25 U/L (5-37); Bilirubin Total 0.5 mg/dL (0.0-1.0); Blood Urea Nitrogen 19 mg/dL (9-16); Calcium 9.4 mg/dL (8.4-10.2); Carbon Dioxide 29 mmol/L (22-29); Chloride 106 mmol/L (96-108); Estimated Glomerular Filt Rate > 60; Glucose Random 97 mg/dL (60-115); Potassium 4.5 mmol/L (3.3-5.1); Sodium 142 mmol/L (135-145); Total Protein 6.7 g/dL (6.5-8.0)
[2024-10-30 09:08] LABS: Free T4 (Free Thyroxine) 0.99 ng/dL (0.71-1.85); Thyroid Stimulating Hormone 1.34 uIU/mL (0.32-4.0)
== END 2024-10-30 07:55 | disposition home or self-care (01) ==
LOC: HO.LAB 07:54
PROVIDERS: PCP Internal Medicine; Visit Provider Internal Medicine
DX: F41.1 Generalized anxiety disorder (principal); R30.0 Dysuria; N50.82 Scrotal pain; R73.9 Hyperglycemia, unspecified
CPT/HCPCS: 36415; 80053; 81003; 83036; 84439; 84443; 85025

== ENCOUNTER 2025-02-26 09:40 | Outpatient (AMB) | payer OTHER, SELFPAY ==
[2025-02-26 09:42] VITALS: BP 106/52; PULSE 54; O2SAT 98; BMI 24.3
--- NOTE | 2025-02-26 09:42 | MHC.PC.OV ---
Vital Signs 02/26/25 09:42 Height 5 ft 8 in Weight 160 lb BMI 24.3 BP 106/52 L Blood Pressure Location Lt brachial Position Sitting Pulse 54 Pulse Source Pulse Oximeter Pulse Oximetry (%) 98 Oxygen Delivery Method Room Air Intake Visit Reasons: discuss head bump Allergies No Known Allergies Allergy (Verified 02/26/25 09:43) Tobacco use date assessed: 10/09/24 Dental Screening Dental Screen Date: 10/09/24 [facility] Medical History Lower abdominal pain Leukopenia Thrombocytopenia Abnormal ultrasound of liver Surgical History H/O left wrist surgery Family History Father Hx of type 1 diabetes mellitus Mother Hx of heart failure Brain aneurysm Paternal Grandfather Colon cancer Maternal Aunt Brain aneurysm Stomach cancer Social History (Updated 10/09/24 @ 10:35 by Osvaldo White MD) Housing: Apartment Alcohol intake: current Alcohol intake frequency: holidays/special occasions only Comment: once Q 3 month 6 drinks Patient Tobacco Use Status: Former Tobacco user Tobacco use type: Cigarette Years Smoked: stopped 2021, MJ e-Cigarette/Vaping Use: Never Used Second Hand Smoke Exposure: No Substance Use Type: Marijuana service: No Current occupational status: employed Current occupational exposures/hazards: No Cognitive needs: No Hearing needs: No Vision needs: Yes Questionnaire PHQ-9 Over the last 2 weeks, how often have you been bothered by any of the following problems? 1. Little interest or pleasure in doing things: not at all 2. Feeling down, depressed, or hopeless: not at all 3. Trouble falling or staying asleep, or sleeping too much: not at all 4. Feeling tired or having little energy: several days 5. Poor appetite or overeating: not at all 6. Feeling bad about yourself - or that you are a failure or have let yourself or your family down: not at all 7. Trouble concentrating on things, such as reading the newspaper or watching television: not at all 8. Moving or speaking so slowly that other people could have noticed. Or the opposite - being so fidgety or restless that you have been moving around a lot more than usual: not at all 9. Thoughts that you would be better off or of hurting yourself in some way: not at all Total score: 1 Depression Screening Interpretation: Positive Depression Screening Done: Yes Source: Developed by Drs. Inderjit Bailey, Urszula Portillo, J Carlos Chiu and colleagues, with an educational ursula from [employer]. Thrive Questionnaire Date Thrive assessed: 10/09/24 What is your living situation today?: I have a steady place to live Within the past 12 months, did the food you bought not last and you didn't have the money to get more?: I choose not to answer this question Within the past 12 months, did you worry whether your food would run out before you got money to buy more?: Never true Do you have trouble paying for medicines?: No Do you have trouble getting transportation to medical appointments?: No Do you have trouble paying your heating and electricity bill?: I choose not to answer this question Do you have trouble taking care of your child, family member or friend?: No Do you have trouble with day-to-day activities such as bathing, preparing meals, shopping, managing finances, etc.?: No Are you currently unemployed and looking for a job?: No Are you interested in more education?: Yes Please select the resources that you would like help with: None Currently or been in a relationship where the following occur: No concerns reported THRIVE Score: 0 AUDIT C Alcohol Use Questionnaire (AUDIT-C) 1. How often do you have a drink containing alcohol?: Never 3. How often do you have six or more drinks on one occasion?: Never Total Score: 0 SHIVA-7 AMB Questionnaire SHIVA-7 Date SHIVA - 7 assessed: 10/09/24 Feeling nervous, anxious, or on edge: 1 = Several days Not being able to stop or control worryin = Several days Worrying too much about different things: 1 = Several days Trouble relaxin = Not at all Being so restless that it is hard to sit still: 0 = Not at all Becoming easily annoyed or irritable: 0 = Not at all Feeling afraid as if something awful might happen: 1 = Several days Total SHIVA-7 score (0-4 normal; 5-9 mild; 10-14 moderate; 15-21 severe): 4 Source: Developed by Drs. Inderjit Bailey, Urszula Portillo, J Carlos Chiu and colleagues, with an educational ursula from [employer]. Physical exam (Primary Care) Vital Signs: Last Vital Signs Pulse 54 02/26/25 09:42 BP 106/52 L 02/26/25 09:42 Pulse Ox 98 02/26/25 09:42 Oxygen Delivery Method Room Air 02/26/25 09:42 BMI result Body Mass Index 24.3 Tobacco/Smoking Status: Tobacco use Status Tobacco use date assessed 10/09/24 02/26/25 09:46 Patient Tobacco Use Status Former Tobacco user 02/26/25 09:46 Tobacco use type Cigarette 02/26/25 09:46 e-Cigarette/Vaping Use Never Used 02/26/25 09:46 PHQ-9: PHQ-9 Score PHQ-9: Total score 1 02/26/25 10:03 Depression Screening Interpretation: Positive Thrive Assessment: Date of Thrive Assessment Date Thrive assessed 10/09/24 02/26/25 09:46 Currently or been in a relationship where the following occur: No concerns reported Coding Level of Care Code Est Pt Level 4 (35134) Diagnoses Knee pain, bilateral M25.561; M25.562 Head mass R22.0 Gastroesophageal reflux disease without esophagitis K21.9 Esophagitis presence: without esophagitis Assessment & Plan Assessment & Plan (1) Knee pain, bilateral: Code(s): M25.561 - Pain in right knee; M25.562 - Pain in left knee Category: Medical Plan: xray requested (2) Head mass: Comment: L forehead Code(s): R22.0 - Localized swelling, mass and lump, head Category: Medical Plan: resolved for now and will call if reoccurs (3) GERD (gastroesophageal reflux disease): Comment: April 2019 Code(s): K21.9 - Gastro-esophageal reflux disease without esophagitis Category: Medical Qualifiers: Esophagitis presence: without esophagitis Qualified Code(s): K21.9 - Gastro-esophageal reflux disease without esophagitis Plan: Avoid the foods that causes that usually spicy foods, tomato products, juices, coffee, soda and foods that your sensitive to. After eating do not lie down, allow 3-4 hours before in lie down. And keep the head of bed above 30 degrees to avoid the acid from going up. has omeprazole but not taking presently Plan History of Present Illness The patient is a 34-year-old male presenting with forehead swelling and knee pain. The forehead swelling appeared without any known trauma and resolved spontaneously after a few days, but the patient now experiences intermittent pressure in the area without associated pain or visual disturbances. The knee pain began after a trip in December, characterized by severe pain and cracking of the kneecap, especially when descending stairs. The patient reports occasional unsteadiness and tingling sensations, particularly when lying on the right side. The patient has a history of mild thrombocytopenia, with normal blood count, electrolytes, renal function, and liver function tests. The patient is not currently taking omeprazole regularly for GERD, using it only as needed. Health Maintenance - Discussed the option of flu vaccination in March Social History - Employment: Works in [employer], involving frequent stair climbing - Family: Has a daughter Review of Systems - Neurological: Reports intermittent pressure on the forehead, denies pain or visual disturbances - Musculoskeletal: Reports knee pain with cracking and occasional unsteadiness, denies swelling - Gastrointestinal: Denies nausea, vomiting, or changes in bowel movements Physical Exam - Neurological: Intact, no abnormalities noted - Musculoskeletal: No pain on palpation, pressure sensation noted on forehead Results - Labs: Mild thrombocytopenia, normal blood count, electrolytes, renal function, liver function, and hemoglobin A1c - Urine test: Negative Plan Patient was informed and verbally consented to the use of an ambient scribe for clinic note documentation during this visit. 1. Forehead Swelling With Pressure Sensation The patient experienced a spontaneous resolution of the forehead swelling, with current intermittent pressure sensation. A CT scan was discussed as a diagnostic option if symptoms persist or worsen. 2. Knee Pain With Possible Tendon Involvement The patient reports knee pain with cracking and occasional unsteadiness, particularly when descending stairs. An x-ray was ordered to evaluate the knee, and the use of topical diclofenac gel was suggested for inflammation management. 3. Gastroesophageal Reflux Disease (Gerd) The patient is not regularly taking omeprazole and uses it only as needed for GERD symptoms. No changes in management were discussed during this visit. Discussion Notes I discussed with the patient the option of a CT scan for further evaluation of the forehead swelling if symptoms persist or worsen, considering the radiation exposure involved. For the knee pain, I recommended an x-ray to assess the joint and suggested the use of topical diclofenac gel for inflammation. We also discussed the patient's current management of GERD with as-needed omeprazole use. Patient Instructions - Monitor forehead pressure and report any worsening symptoms. - Use topical diclofenac gel for knee pain as needed. - Continue using omeprazole as needed for GERD symptoms. - Consider getting a flu shot in March. Orders: Orders XR Knee Skip 1or 2V Today M25.561 - Pain in right knee, M25.562 - Pain in left knee
== END 2025-02-26 10:10 | disposition home or self-care (01) ==
LOC: HO.HMCH 09:41
PROVIDERS: PCP Internal Medicine; Visit Provider Internal Medicine
DX: M25.561 Pain in right knee (principal); M25.562 Pain in left knee; R22.0 Localized swelling, mass and lump, head; K21.9 Gastro-esophageal reflux disease without esophagitis